=== PATIENT | male | born 1965 | race Caucasian/White ===

== ENCOUNTER 2021-02-11 09:22 | Outpatient (REF) | payer OTHER, SELFPAY ==
[2021-02-11 10:10] LABS: MANUAL DIFF FLAG NO
[2021-02-11 10:14] LABS: Basophils Absolute Auto 0.1 X10*3/uL (0.0-0.2); Basophils Percent Auto 0.9 % (0-2); Eosinophils Absolute Auto 0.3 X10*3/uL (0.0-0.4); Eosinophils Percent Auto 3.3 % (0-4); Hematocrit 42.7 % (42-52); Hemoglobin 13.8 g/dl (14.0-18.0); Imm Gran Abs Auto 0.04 X10*3/uL (0.00-0.03); Imm Gran Pct Auto 0.5 % (0.0-0.4); Lymphocytes Absolute Auto 2.2 X10*3/uL (1.2-4.9); Lymphocytes Percent Auto 28.1 % (20-40); Mean Corpuscular HGB Conc 32.3 g/dl (31.0-36.0); Mean Corpuscular Hemoglobin 28.6 pg (27.0-33.0); Mean Corpuscular Volume 88.4 fL (80-98); Monocytes Absolute Auto 0.6 X10*3/uL (0.1-1.2); Monocytes Percent Auto 7.8 % (2-11); Neutrophils Absolute Auto 4.7 X10*3/uL (2.0-8.3); Neutrophils Percent Auto 59.4 % (45-73); Platelet Count 304 X10*3/uL (160-400); Red Blood Count 4.83 X10*6/uL (4.60-5.80); Red Cell Distribution Width 13.4 % (11.0-16.0); White Blood Count 7.9 X10*3/uL (4.8-10.8)
[2021-02-11 10:26] LABS: Estimated Average Glucose 123 mg/dL; Hemoglobin A1C 142.3952 umol/L; Hemoglobin A1c % 5.9 %
[2021-02-11 10:37] LABS: Anion Gap 11 (12-20); Blood Urea Nitrogen 14 mg/dL (9-16); Calcium 9.3 mg/dL (8.4-10.2); Carbon Dioxide 31 mmol/L (22-29); Chloride 103 mmol/L (96-108); Cholesterol 179 mg/dL; Estimated Glomerular Filt Rate > 60; Glucose Fasting 109 mg/dL (60-99); HDL Cholesterol 43 mg/dL; LDL Cholesterol Calculated 113 mg/dl; Potassium 4.2 mmol/L (3.3-5.1); Sodium 141 mmol/L (135-145); Triglycerides 117 mg/dL
== END 2021-02-11 09:23 | disposition home or self-care (01) ==
LOC: HO.LAB 09:22
PROVIDERS: PCP Internal Medicine; Visit Provider Nurse Practitioner Family
DX: I10 Essential (primary) hypertension (principal)
CPT/HCPCS: 36415; 80048; 80061; 83036; 85025

== ENCOUNTER 2022-11-03 09:41 | Outpatient (REF) | payer OTHER, SELFPAY ==
[2022-11-03 11:32] LABS: Alanine Aminotransferase 24 U/L (0-40); Albumin Level 3.9 g/dL (3.5-5.0); Alkaline Phosphatase 44 U/L (39-117); Anion Gap 12 (12-20); Aspartate Amino Transferase 21 U/L (5-37); Bilirubin Total 0.3 mg/dL (0.0-1.0); Blood Urea Nitrogen 16 mg/dL (9-16); Calcium 9.2 mg/dL (8.4-10.2); Carbon Dioxide 30 mmol/L (22-29); Chloride 104 mmol/L (96-108); Cholesterol 176 mg/dL; Estimated Glomerular Filt Rate > 60; Glucose Fasting 98 mg/dL (60-99); HDL Cholesterol 41 mg/dL; LDL Cholesterol Calculated 120 mg/dl; Potassium 4.6 mmol/L (3.3-5.1); Sodium 141 mmol/L (135-145); Total Protein 7.2 g/dL (6.5-8.0); Triglycerides 79 mg/dL
== END 2022-11-03 09:42 | disposition home or self-care (01) ==
LOC: HO.LAB 09:41
PROVIDERS: Visit Provider Internal Medicine
DX: E78.5 Hyperlipidemia, unspecified (principal); I10 Essential (primary) hypertension
CPT/HCPCS: 36415; 80053; 80061

== ENCOUNTER 2023-11-12 08:37 | Outpatient (REF) | payer OTHER, SELFPAY ==
--- NOTE | ~2023-11-12 | XR_ITS ---
EXAMINATION: XR knee LT 2V, XR knee standing BI CLINICAL INFORMATION: Reason for Exam M25.569 - Pain in unspecified knee COMPARISON: 06/12/2018 TECHNIQUE: Standing views of the bilateral knees and lateral and sunrise view of the left knee XR/XR knee standing BI FINDINGS/IMPRESSION: * No acute fracture or dislocation. * Bilateral mild degenerative changes of the knee joints. * Small left suprapatellar effusion.
--- NOTE | ~2023-11-12 | XR_ITS ---
EXAMINATION: XR knee LT 2V, XR knee standing BI CLINICAL INFORMATION: Reason for Exam M25.569 - Pain in unspecified knee COMPARISON: 06/12/2018 TECHNIQUE: Standing views of the bilateral knees and lateral and sunrise view of the left knee XR/XR knee LT 2V FINDINGS/IMPRESSION: * No acute fracture or dislocation. * Bilateral mild degenerative changes of the knee joints. * Small left suprapatellar effusion.
== END 2023-11-12 08:38 | disposition home or self-care (01) ==
LOC: HO.HOSX 08:37
PROVIDERS: PCP Internal Medicine; Visit Provider Physician Assistant
DX: M17.12 Unilateral primary osteoarthritis, left knee (principal)
CPT/HCPCS: 20610; 73560; 73565; J1040

== ENCOUNTER 2023-11-12 08:37 | Outpatient (AMB) | payer OTHER, SELFPAY ==
--- NOTE | 2023-11-12 08:49 | A.OFFVIS_ITS ---
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 Patient reports ongoing pain for a month and a half. He states his pain is wore when sleeping and using the stairs. Pain is more focused on both sides of the knee. Hx of injections with 5 years of relief. Hx of PT about 2 years ago with no relief. Hx of tried and failed 3+ months of compound cream. Hx of tried and failed 3 + months of NSAIDs/Tylenol. 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 The patient reports having a cortisone injection in the left knee in 2019. He reports ongoing pain for 1.5 months. He claims to have an increase in pain when sleeping and with use of stairs. He states the pain is on both sides of his knee. Patient confirms a history of injections with 5 years of relief. He reports participating in physical therapy 2 years ago, in 2020, with no relief. He states he tried and failed over 3 months use of compound cream and NSAID use like Tylenol. [facility] Medical History Benign essential hypertension Impaired fasting glucose Morbid obesity with BMI of 45.0-49.9, adult Surgical History S/P excision of lipoma (~2001) Family History Father Diabetes Mother Diabetes Family/Other Substance use disorder Social History (Updated 11/12/23 @ 08:52 by Rahul Hood) Housing: Apartment Alcohol intake: current Alcohol intake frequency: holidays/special occasions only Alcohol type: beer Patient Tobacco Use Status: Never used Tobacco e-Cigarette/Vaping Use: Never Used Second Hand Smoke Exposure: No service: No 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al status: employed 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: [employer] worker 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al exposures/hazards: No Cognitive needs: No Hearing needs: No Vision needs: No Review of Systems Const All systems reviewed & are unremarkable except as noted in HPI and below Physical Exam Vital Signs: BMI result Body Mass Index 43.8 Const General: cooperative and no acute distress Orientation/consciousness: patient oriented x3 Resp Effort & Inspection: normal respiratory effort and able to speak in complete sentences Cardio Peripheral pulses: Peripheral pulses 2+ throughout Skin General skin exam: no rashes or lesions noted Neuro General: patient oriented x3 Extrem Other: Left knee: Normal to inspection. No ecchymosis, erythema, or joint effusion. No tenderness to palpation to the medial or lateral joint lines. Full knee extension and flexion. Mild crepitus felt with ROM. NVI. Office Procedures Joint Injection/Drain Joint Injection/Drain Primary Site: left knee Prep: site was prepped using aseptic technique, ethochloride spray was applied and injection warnings given Injected: 80 mg of, DepoMedrol, with 8 mL of (2% plain lido) and in the joint Approach Used: anterolateral Procedure: The patient tolerated the procedure well, but had some pain with the injection and there was some relief with the local anesthesia Coding 86652 - Large joint Procedure code (CPT) selection complete Assessment & Plan Assessment & Plan (1) Osteoarthritis of left knee: Code(s): M17.12 - Unilateral primary osteoarthritis, left knee Qualifiers: Osteoarthritis type: unspecified Qualified Code(s): M17.12 - Unilateral primary osteoarthritis, left knee Plan Mr. Sadiq Babcock is a 57-year-old male who presents in the office today, as a new patient, for an evaluation of left knee pain. The patient reports having a cortisone injection in the left knee in 2019. He reports ongoing pain for 1.5 months. He claims to have an increase in pain when sleeping and with use of stairs. He states the pain is on both sides of his knee. Patient confirms a history of injections with 5 years of relief. He reports participating in physical therapy 2 years ago, in 2020, with no relief. He states he tried and failed over 3 months use of compound cream and NSAID use like Tylenol. The patient was offered a cortisone injection in the left knee with 80 mg of DepoMedrol. The patient was explained the risk, benefits, and alternatives to receiving this injection. After receiving consent for the injection, the patient had the procedure done while in office today. The patient tolerated the procedure well with no complications. The patient was given a reaction knee brace, off the shelf, while in the office today. Follow up will be PRN, or sooner if needed. X-rays of the left knee which were obtained while in the office today and were reviewed by me, Melissa Mello PA-C, revealed left knee osteoarthritis. Orders: Orders XR knee LT 2V Today M25.569 - Pain in unspecified knee XR knee standing BI Today M25.569 - Pain in unspecified knee Patient Instructions: Scribed for Melissa Mello PA-C by Dorothy Chawla medical transport specialist, on 11/12/2023 at 8:39 am, EST. Coding Level of Care Code New Pt Level 4 (83381) Diagnoses Osteoarthritis of left knee, unspecified osteoarthritis type M17.12 Osteoarthritis type: unspecified CPT Codes Coding - 07817 Large joint: 34191 - Large joint ([id number])
[2023-11-12 08:54] VITALS: BMI 43.8
== END 2023-11-12 09:53 | disposition home or self-care (01) ==
PROVIDERS: PCP Internal Medicine; Visit Provider Physician Assistant
DX: M17.12 Unilateral primary osteoarthritis, left knee (principal)
CPT/HCPCS: 20610; 99203

== ENCOUNTER 2023-11-25 16:50 | Outpatient (AMB) | payer OTHER, SELFPAY ==
--- NOTE | 2023-11-25 17:06 | MHC.PC.OV ---
Vital Signs 11/25/23 17:07 11/25/23 17:55 Height 5 ft 10 in Weight 305 lb BMI 43.8 BP 160/90 H 160/90 H Blood Pressure Location Lt brachial Lt brachial Position Sitting Sitting Intake Visit Reasons: physical exam Intake Note: Patient here for a physical exam, c/o acid reflux, lump on chest and left shoulder, pain when urinating 2 weeks ago Stitch Marker Required: No Accompanied by: Self / Same As Patient Allergies No Known Allergies Allergy (Verified 11/25/23 17:42) Medication List - Last Reconciled 11/25/23 by Shruthi Esteves MD amlodipine 10 mg PO DAILY hydrochlorothiazide 12.5 mg PO DAILY ibuprofen 600 mg PO Q6H PRN Tobacco use date assessed: 11/25/23 Dental Screening Dental Screen Date: 11/25/23 Did you have a dental visit in the last 12 months?: No Did you have a dental problem in the last 6 months where you did not have access to dental care?: No Was dental information given to patient?: Patient has dentist HPI HPI Comments History of Present Illness Details This is a 57-year-old male with morbid obesity that comes for his physical exam. He had a colonoscopy in [place] years ago and does not recall the results. I will order a Cologuard. He is morbidly obese with a BMI of 43.8 and declines weight loss surgery. Complains of severely dozing off while sitting and reading, watching TV, lying down to rest in the afternoon and sitting quietly after lunch having an [place] score Scale of 12 and sleep study will be order. Complains of left knee pain and that is follow by ortho. Also complains of heartburn that started happening few weeks ago. Blood pressure is elevated but he ran out of his medications a while ago. Blood pressure will be recheck in 3 weeks by nurse navigator. [facility] Medical History (Updated 11/25/23 @ 17:54 by Shruthi Esteves MD) Morbid obesity with BMI of 45.0-49.9, adult Impaired fasting glucose Benign essential hypertension Surgical History S/P excision of lipoma (~2001) Family History (Updated 11/25/23 @ 17:45 by Shruthi Esteves MD) Father Diabetes Mother Diabetes Pancreatic cancer Family/Other Substance use disorder Social History Housing: Apartment Alcohol intake: current Alcohol intake frequency: holidays/special occasions only Alcohol type: beer Patient Tobacco Use Status: Never used Tobacco e-Cigarette/Vaping Use: Never Used Second Hand Smoke Exposure: No service: No 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al status: employed 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 1. Little interest or pleasure in doing things: not at all 2. Feeling down, depressed, or hopeless: not at all 3. Trouble falling or staying asleep, or sleeping too much: several days 4. Feeling tired or having little energy: not at all 5. Poor appetite or overeating: not at all 6. Feeling bad about yourself - or that you are a failure or have let yourself or your family down: not at all 7. Trouble concentrating on things, such as reading the newspaper or watching television: not at all 8. Moving or speaking so slowly that other people could have noticed. Or the opposite - being so fidgety or restless that you have been moving around a lot more than usual: not at all 9. Thoughts that you would be better off or of hurting yourself in some way: not at all Total score: 1 Depression Screening Interpretation: Negative Depression Screening Done: Yes 37557 - PHQ-9 Billing: Yes Source: Developed by Drs. Jeremy Friend, Alicia Mckeon, Josep Donnelly and colleagues, with an educational joe from [email or web address]. Thrive Questionnaire Date Thrive assessed: 11/25/23 I am a: Patient What is your living situation today?: I have a steady place to live Within the past 12 months, did the food you bought not last and you didn't have the money to get more?: Never true Within the past 12 months, did you worry whether your food would run out before you got money to buy more?: Never true Do you have trouble paying for medicines?: No Do you have trouble getting transportation to medical appointments?: No Do you have trouble paying your heating and electricity bill?: No Do you have trouble taking care of your child, family member or friend?: No Do you have trouble with day-to-day activities such as bathing, preparing meals, shopping, managing finances, etc.?: No Are you currently unemployed and looking for a job?: No Are you interested in more education?: No Please select the resources that you would like help with: None Currently or been in a relationship where the following occur: no concerns reported THRIVE Score: 0 AUDIT C Alcohol Use Questionnaire (AUDIT-C) 1. How often do you have a drink containing alcohol?: Monthly or less 2. How many drinks containing alcohol do you have on a typical day when you are drinking?: 1 or 2 3. How often do you have six or more drinks on one occasion?: Never Total Score: 1 GAEL-7 AMB Questionnaire GAEL-7 Date GAEL - 7 assessed: 11/25/23 Feeling nervous, anxious, or on edge: 1 = Several days Not being able to stop or control worryin = Not at all Worrying too much about different things: 0 = Not at all Trouble relaxin = Not at all Being so restless that it is hard to sit still: 0 = Not at all Becoming easily annoyed or irritable: 1 = Several days Feeling afraid as if something awful might happen: 0 = Not at all Total GAEL-7 score (0-4 normal; 5-9 mild; 10-14 moderate; 15-21 severe): 2 Source: Developed by Drs. Jeremy Friend, Alicia Mckeon, Josep Donnelly and colleagues, with an educational joe from [email or web address]. GAEL-7 Assessment Billing GAEL-7 Assessment Tool: GAEL-7 Assessment 37172 Review of Systems Const All systems reviewed & are unremarkable except as noted in HPI and below Eyes Reports no additional complaints, Denies change in vision and Denies other visual disturbances Card Denies chest pain at rest, Denies chest pain with activity, Denies edema, Denies irregular heart rhythm, Denies claudication, Denies dyspnea, Denies dyspnea on exertion, Denies orthopnea, Denies paroxysmal nocturnal dyspnea and Denies slow heart rate Resp Denies cough, Denies dyspnea and Denies dyspnea on exertion GI Denies abdominal pain, Denies change in bowel habits, Denies excessive flatus, Denies nausea and Denies vomiting Denies urinary hesitancy, Denies urinary incontinence and Denies urinary urgency Musc Denies abnormal gait, Denies atrophy, Denies deformity and Denies limited range of motion Skin/Breast Denies bleeding lesions, Denies changing lesions and Denies rash Neuro Denies abnormal gait and Denies lack of coordination Physical exam (Primary Care) Vital Signs: Last Vital Signs BP 160/90 H 11/25/23 17:07 BMI result Body Mass Index 43.8 Tobacco/Smoking Status: Tobacco use Status Tobacco use date assessed 11/25/23 11/25/23 17:13 Patient Tobacco Use Status Never used Tobacco 11/25/23 17:13 e-Cigarette/Vaping Use Never Used 11/25/23 17:13 PHQ-9: PHQ-9 Score PHQ-9: Total score 1 11/25/23 17:13 Depression Screening Interpretation: Negative Thrive Assessment: Date of Thrive Assessment Date Thrive assessed 11/25/23 11/25/23 17:13 Currently or been in a relationship where the following occur: no concerns reported Const Orientation/consciousness: patient oriented x3 [facility] Head: Yes normal to inspection, Yes normocephalic and Yes atraumatic Ears: external ears normal Eyes General: appearance normal, both eyes and all related structures Eyelids: Yes eyelids normal Conjunctivae: conjunctivae normal Neck Neck: Yes normal visual inspection and Yes supple Resp Effort & Inspection: normal respiratory effort Auscultation: clear to auscultation bilaterally Cardio Jugular venous distension: no JVD Rate: regular rate Rhythm: regular rhythm Heart sounds: S1 normal heart sound present and S2 normal heart sound present GI Inspection: Yes normal to inspection Palpation (GI): Soft to palpation and nontender Auscultation: normal bowel sounds Skin General skin exam: no rashes or lesions noted Neuro General: patient oriented x3 and no focal motor deficits Extrem General: Yes full ROM Psych Appearance: grossly normal Assessment and Plan Assessment & Plan (1) Adult general medical exam: Code(s): Z00.00 - Encounter for general adult medical examination without abnormal findings Plan: Repeat in a year. (2) Morbid obesity with BMI of 40.0-44.9, adult: Code(s): E66.01 - Morbid (severe) obesity due to excess calories; Z68.41 - Body mass index [BMI] 40.0-44.9, adult Plan: Start diet and exercise as tolerated. BMI goal is less than 30. Orders: Orders Lipid Panel Today E78.5 - Hyperlipidemia, unspecified RT home sleep study Today R40.0 - Somnolence FL upper GI series Today K21.9 - Gastro-esophageal reflux disease without esophagitis Comprehensive [place]. Panel Fast Today K21.9 - Gastro-esophageal reflux disease without esophagitis Referrals Cologuard Test Z12.11 - Encounter for screening for malignant neoplasm of colon, Z12.12 - Encounter for screening for malignant neoplasm of rectum Medications: New omeprazole 20 mg PO DAILY 90 days 90 caps 0RF Refilled amlodipine 10 mg PO DAILY 90 tabs 1RF I10 - Essential (primary) hypertension hydrochlorothiazide 12.5 mg PO DAILY 90 tabs 1RF I10 - Essential (primary) hypertension Coding Level of Care Code Est Pt Prev Care 40-64y(27788) Diagnoses Adult general medical exam Z00.00 Morbid obesity with BMI of 40.0-44.9, adult E66.01; Z68.41 Additional Codes GAEL-7 Assessment Billing - GAEL-7 Assessment Tool: GAEL-7 Assessment 24154 ([id number]) Time Spent (min) 33
[2023-11-25 17:07] VITALS: BP 160/90; BMI 43.8
[2023-11-25 17:55] VITALS: BP 160/90
== END 2023-11-25 17:56 | disposition home or self-care (01) ==
LOC: HO.HMGH 16:50
PROVIDERS: PCP Internal Medicine; Visit Provider Internal Medicine
DX: Z00.00 Encounter for general adult medical examination without abnormal findings (principal); E66.01 Morbid (severe) obesity due to excess calories; Z68.41 Body mass index [BMI] 40.0-44.9, adult
CPT/HCPCS: 99396

== ENCOUNTER → 2024-01-13 12:32 | Outpatient (REF) | payer OTHER, SELFPAY | LOC: HO.SL 12:32 | PROVIDERS: PCP Internal Medicine; Visit Provider Internal Medicine | DX: R40.0 Somnolence (principal); G47.33 Obstructive sleep apnea (adult) (pediatric) | CPT/HCPCS: 95806 ==

== ENCOUNTER → 2024-01-13 13:23 | Outpatient (BNV) | payer OTHER, SELFPAY | PROVIDERS: PCP Internal Medicine; Visit Provider Internal Medicine | DX: G47.33 Obstructive sleep apnea (adult) (pediatric) (principal) | CPT/HCPCS: 95806 ==

== ENCOUNTER 2024-01-29 08:34 | Outpatient (REF) | payer OTHER, SELFPAY ==
--- NOTE | ~2024-01-29 | FL_ITS ---
EXAMINATION: XR FLUOROSCOPY UPPER GI WITH AIR CLINICAL INFORMATION: Reflux COMPARISON: None TECHNIQUE: Fluoroscopic air contrast upper GI examination was performed utilizing standard techniques with thin and thick barium and effervescent granules. Numerous spot images were obtained. FINDINGS: Lateral cine images of the oropharynx and hypopharynx demonstrate normal swallow mechanism with normal epiglottic inversion and soft palate elevation. No tracheal penetration, glottic or subglottic aspiration identified. No nasopharyngeal reflux present. Hypopharyngeal structures appear normal without evidence of mass or diverticulum. There was no significant cricopharyngeal achalasia. Dual and single contrast images of the esophagus demonstrate normal caliber, contour, and mucosal pattern. No evidence of stricture, mass, or ulcerations identified. Esophageal peristalsis was mildly disordered. Not well visualized, is a probable Schatzki's ring which appears wide open (RF 1-8, 145/150). A moderate-sized type I hiatal hernia is present. No significant gastroesophageal reflux was seen during the course of the examination and on reflux views. Dual contrast and single contrast images of the stomach demonstrated normal contour and mucosal pattern without evidence of mass, ulceration, or other abnormality. Contrast freely passed into the gastric antrum and duodenal bulb without delay. Single and air-contrast images of the duodenal bulb demonstrate no abnormality. In the second segment of the duodenum, there is a possible filling defect with smooth margins (RF 1-6, image 51 of 102). This carries a broad differential. Remainder of the duodenum as well as a duodenal bulb is normal in appearance. There is no malrotation. The imaged proximal jejunum has a normal fold pattern and caliber. FLUOROSCOPY TIME: 3 minutes 29 seconds Number of Spot Images: 11 Number of Cine: 8 DOSE AREA PRODUCT: 3125 uGy-m2 (microgray-meter squared) FL/FL upper GI w air IMPRESSION: 1. Moderate-sized type I hiatal hernia. Mildly disordered esophageal peristalsis. 2. Probable Schatzki's ring that appears wide open. 3. Suspect gastroesophageal reflux given the size of the hiatal hernia, although this was not seen during this examination. 4. Possible smooth filling defect in segment 2 of the duodenum. Recommend correlating with EGD. This procedure was performed by Abhilash Og PA-C, and supervised by Dr. Conwya
== END 2024-01-29 08:35 | disposition home or self-care (01) ==
LOC: HO.XRAY 08:34
PROVIDERS: PCP Internal Medicine; Visit Provider Internal Medicine
DX: K21.9 Gastro-esophageal reflux disease without esophagitis (principal)
CPT/HCPCS: 74246

== ENCOUNTER → 2024-01-29 08:39 | Outpatient (BNV) | payer OTHER, SELFPAY | PROVIDERS: PCP Internal Medicine; Visit Provider Physician Assistant Surgical | DX: K21.9 Gastro-esophageal reflux disease without esophagitis (principal) | CPT/HCPCS: 74246 ==

== ENCOUNTER 2024-02-11 15:27 | Outpatient (AMB) | payer OTHER, SELFPAY ==
--- NOTE | 2024-02-11 15:35 | A.OFFVIS_ITS ---
Intake Vital Signs 02/11/24 15:39 Height 5 ft 10 in Weight 305 lb BMI 43.8 Intake Visit Reasons: ov- left knee pain last injection 11/12/23 Intake Note: Ben is a 58 year old male who presents today for a follow up for his left knee OA, last injection 11/12/23. Patient reports his pain is been getting worse for the past couple months. He states his pain is worse when he is sleeping on his side and when he is using the stairs. Patient has tried and failed ibuprofen for 3+ months with no relief. He states that the injection didn't give him relief. Patient expresses that he hears a crunching sensation when he is walking and sleeping. Allergies No Known Allergies Allergy (Verified 02/11/24 15:38) HPI ov- left knee pain last injection 11/12/23 HPI Details 58-year-old male who presents in the off ice today for a follow up of left knee osteoarthritis. I last saw the patient in the office on 11/12/2023 when he was given a cortisone injection. He was also given a reaction knee brace. While in the office today he reports his pain has been getting worse for the past couple of months. He states his pain is worse when he is sleeping on his side and with the use of stairs. Confirms trying and failing the use of Ibuprofen for 3+ months with no relief. He states the injection did not give him relief. Patient expresses that he has a crunching sensation in the left knee when ambulating and sleeping. [facility] Medical History Morbid obesity with BMI of 45.0-49.9, adult Impaired fasting glucose Benign essential hypertension Surgical History S/P excision of lipoma (~2001) Family History (Updated 11/25/23 @ 17:45 by Shruthi Esteves MD) Father Diabetes Mother Diabetes Pancreatic cancer Family/Other Substance use disorder Social History Housing: Apartment Alcohol intake: current Alcohol intake frequency: holidays/special occasions only Alcohol type: beer Patient Tobacco Use Status: Never used Tobacco e-Cigarette/Vaping Use: Never Used Second Hand Smoke Exposure: No service: No 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al status: employed 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al exposures/hazards: No Cognitive needs: No Hearing needs: No Vision needs: No Review of Systems Const All systems reviewed & are unremarkable except as noted in HPI and below Physical Exam Vital Signs: BMI result Body Mass Index 43.8 Const General: cooperative and no acute distress Orientation/consciousness: patient oriented x3 Resp Effort & Inspection: normal respiratory effort and able to speak in complete sentences Cardio Rate: regular rate Peripheral pulses: Peripheral pulses 2+ throughout GI Palpation (GI): Soft to palpation Skin General skin exam: no rashes or lesions noted Lesions: no lesions Rashes: no rashes Neuro General: patient oriented x3 Extrem Other: Left knee: Normal to inspection. No ecchymosis, erythema, or joint effusion. No tenderness to palpation to the medial or lateral joint lines. Full knee extension and flexion. Mild crepitus felt with ROM. NVI. Assessment & Plan Assessment & Plan (1) Osteoarthritis of left knee: Code(s): M17.12 - Unilateral primary osteoarthritis, left knee Qualifiers: Osteoarthritis type: unspecified Qualified Code(s): M17.12 - Unilateral primary osteoarthritis, left knee Plan Mr. Sadiq Babcock is a 58-year-old male who presents in the office today for a follow up of left knee osteoarthritis. I last saw the patient in the office on 11/12/2023 when he was given a cortisone injection. He was also given a reaction knee brace. While in the office today he reports his pain has been getting worse for the past couple of months. He states his pain is worse when he is sleeping on his side and with the use of stairs. Confirms trying and failing the use of Ibuprofen for 3+ months with no relief. He states the injection did not give him relief. Patient expresses that he has a crunching sensation in the left knee when ambulating and sleeping. Discussed the role of Gel injections, a referral to Pain Management, versus a referral to Physical Therapy. The patient is unwilling to attend PT. He would like to proceed with Gel injections. We will petition the insurance company for coverage, and should this not work or give him relief, the next step would be a referral to Pain Management. He asked for [facility] paperwork to be filled out for his osteoarthritis of the left knee, which I have declined to do so. Follow up will be pending insurance approval or denial of the Gel injections, or sooner if needed. Patient Instructions: Scribed by Dorothy Chawla senior medical transcriptionist, for Melissa Mello PA-C on 02/11/2024 at 3:30 pm,EST. Coding Level of Care Code Est Pt Level 4 (47703) Diagnoses Osteoarthritis of left knee, unspecified osteoarthritis type M17.12 Osteoarthritis type: unspecified
[2024-02-11 15:39] VITALS: BMI 43.8
== END 2024-02-11 15:55 | disposition home or self-care (01) ==
PROVIDERS: PCP Internal Medicine; Visit Provider Physician Assistant
DX: M17.12 Unilateral primary osteoarthritis, left knee (principal)
CPT/HCPCS: 99213

== ENCOUNTER → 2024-02-11 15:27 | Outpatient (BNVA) | payer OTHER, SELFPAY | PROVIDERS: PCP Internal Medicine; Visit Provider Physician Assistant ==

== ENCOUNTER 2024-02-28 07:53 | Outpatient (AMB) | payer OTHER, SELFPAY ==
--- NOTE | 2024-02-28 08:03 | MHC.OFFVIS ---
Intake Visit Reasons: Left Knee Euflexxa Gel Injection #1 Intake Note: Ben is a 58 year old male who presents today for his first euflexxa gel injection. Allergies No Known Allergies Allergy (Verified 02/28/24 08:07) HPI HPI Left Knee Euflexxa Gel Injection #1: Details: 58-year-old male who presents in the office today for a follow up of left knee and to obtain his 1st Euflexxa injection in a series of 3. [facility]LY [facility] Medical History Morbid obesity with BMI of 45.0-49.9, adult Impaired fasting glucose Benign essential hypertension Surgical History S/P excision of lipoma (~2001) Family History (Updated 11/25/23 @ 17:45 by Shruthi Esteves MD) Father Diabetes Mother Diabetes Pancreatic cancer Family/Other Substance use disorder Social History Housing: Apartment Alcohol intake: current Alcohol intake frequency: holidays/special occasions only Alcohol type: beer Patient Tobacco Use Status: Never used Tobacco e-Cigarette/Vaping Use: Never Used Second Hand Smoke Exposure: No service: No 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al status: employed 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al exposures/hazards: No Cognitive needs: No Hearing needs: No Vision needs: No Review of Systems Const All systems reviewed & are unremarkable except as noted in HPI and below Physical Exam Const General: cooperative, healthy appearing and no acute distress Orientation/consciousness: patient oriented x3 Resp Effort & Inspection: normal respiratory effort and able to speak in complete sentences Cardio Rate: regular rate Peripheral pulses: Peripheral pulses 2+ throughout GI Palpation (GI): Soft to palpation Skin General skin exam: no rashes or lesions noted Lesions: no lesions Rashes: no rashes Neuro General: patient oriented x3 Extrem Other: Left knee: Normal to inspection. No ecchymosis, erythema, or joint effusion. No tenderness to palpation to the medial or lateral joint lines. Full knee extension and flexion. Mild crepitus felt with ROM. NVI. Office Procedures Joint Injection/Drain Joint Injection/Drain Primary Site: left knee Injected: in the joint (Euflexxa #1) Approach Used: anterolateral Procedure: The patient tolerated the procedure well, but had some pain with the injection and there was some relief with the local anesthesia Coding 11755 - Large joint Procedure code (CPT) selection complete Assessment & Plan Assessment & Plan (1) Osteoarthritis of left knee: Code(s): M17.12 - Unilateral primary osteoarthritis, left knee Category: Medical Qualifiers: Osteoarthritis type: unspecified Qualified Code(s): M17.12 - Unilateral primary osteoarthritis, left knee Plan Mr. Sadiq Babcock is a 58-year-old male who presents in the office today for a follow up of left knee and to obtain his 1st Euflexxa injection in a series of 3. The patient was injection with his 1st Euflexxa injection in the left knee. The patient was explained the risk, benefits, and alternatives to receiving this injection. After receiving consent for the injection, the patient had the procedure done while in the office today. The patient tolerated the procedure well with no complications. Follow up will be in 1 week for his second injection, or sooner if needed. Patient Instructions: Scribed by Dorothy Chawla medical records director, for Meilssa Mello PA-C on 02/28/2024 at 7:58 am, EST. Coding Level of Care Code Procedure Only Diagnoses Osteoarthritis of left knee, unspecified osteoarthritis type M17.12 Osteoarthritis type: unspecified CPT Codes Coding - 06790 Large joint: 97470 - Large joint ([id number])
== END 2024-02-28 08:23 | disposition home or self-care (01) ==
PROVIDERS: PCP Internal Medicine; Visit Provider Physician Assistant
DX: M17.12 Unilateral primary osteoarthritis, left knee (principal)
CPT/HCPCS: 20610

== ENCOUNTER → 2024-02-28 07:53 | Outpatient (BNVA) | payer OTHER, SELFPAY | PROVIDERS: PCP Internal Medicine; Visit Provider Physician Assistant | DX: M17.12 Unilateral primary osteoarthritis, left knee (principal) | CPT/HCPCS: 20610; J7323 ==

== ENCOUNTER 2024-03-06 10:38 | Outpatient (AMB) | payer OTHER, SELFPAY ==
--- NOTE | 2024-03-06 11:10 | MHC.OFFVIS ---
Intake Visit Reasons: Left Knee Euflexxa Gel Injection #2 Intake Note: Ben is a 58 year old male who presents today for his second euflexxa gel injection. Patient reports he is noticing a little difference when he is sleeping at night. He expresses his pain has gotten a little better. Allergies No Known Allergies Allergy (Verified 02/28/24 08:07) HPI HPI Left Knee Euflexxa Gel Injection #2: Details: 58-year-old male, who is Bruneian speaking, presents in the office today for a follow up of left knee and to obtain his 2nd Euflexxa injection in a series of 3. While in the office today he reports he has noticed a little difference when he is sleeping at night and states his pain has decreased some. [facility] Medical History Morbid obesity with BMI of 45.0-49.9, adult Impaired fasting glucose Benign essential hypertension Surgical History S/P excision of lipoma (~2001) Family History (Updated 11/25/23 @ 17:45 by Shruthi Esteves MD) Father Diabetes Mother Diabetes Pancreatic cancer Family/Other Substance use disorder Social History Housing: Apartment Alcohol intake: current Alcohol intake frequency: holidays/special occasions only Alcohol type: beer Patient Tobacco Use Status: Never used Tobacco e-Cigarette/Vaping Use: Never Used Second Hand Smoke Exposure: No service: No 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al status: employed 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: [employer] worker 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al exposures/hazards: No Cognitive needs: No Hearing needs: No Vision needs: No Review of Systems Const All systems reviewed & are unremarkable except as noted in HPI and below Physical Exam Const General: cooperative, healthy appearing and no acute distress Resp Effort & Inspection: normal respiratory effort and able to speak in complete sentences Cardio Rate: regular rate Peripheral pulses: Peripheral pulses 2+ throughout GI Palpation (GI): Soft to palpation Skin Lesions: no lesions Rashes: no rashes Extrem Other: Left knee: Normal to inspection. No ecchymosis, erythema, or joint effusion. No tenderness to palpation to the medial or lateral joint lines. Full knee extension and flexion. Mild crepitus felt with ROM. NVI. Office Procedures Joint Injection/Drain Joint Injection/Drain Primary Site: left knee Prep: site was prepped using aseptic technique, ethochloride spray was applied and injection warnings given Injected: in the joint (Euflexxa #2) Approach Used: anterolateral Procedure: The patient tolerated the procedure well, but had some pain with the injection and there was some relief with the local anesthesia Coding - Large joint Procedure code (CPT) selection complete Assessment & Plan Assessment & Plan (1) Osteoarthritis of left knee: Code(s): M17.12 - Unilateral primary osteoarthritis, left knee Category: Medical Qualifiers: Osteoarthritis type: unspecified Qualified Code(s): M17.12 - Unilateral primary osteoarthritis, left knee Plan Sadiq Sanchez is a 58-year-old male, who is Bruneian speaking, presents in the office today for a follow up of left knee and to obtain his 2nd Euflexxa injection in a series of 3. While in the office today he reports he has noticed a little difference when he is sleeping at night and states his pain has decreased some. The patient was injection with his 2nd Euflexxa injection in the left knee. The patient was explained the risk, benefits, and alternatives to receiving this injection. After receiving consent for the injection, the patient had the procedure done while in the office today. The patient tolerated the procedure well with no complications. Follow up will be in 1 week for his third injection, or sooner if needed. Patient Instructions: Scribed by Dorothy Chawla medical staff services coordinator, for Melissa Mello PA-C on 03/06/2024 at 10:44 am, EST. Coding Level of Care Code Procedure Only Diagnoses Osteoarthritis of left knee, unspecified osteoarthritis type M17.12 Osteoarthritis type: unspecified CPT Codes Coding - 39716 Large joint: 46930 - Large joint ([id number])
== END 2024-03-06 11:25 | disposition home or self-care (01) ==
PROVIDERS: PCP Internal Medicine; Visit Provider Physician Assistant
DX: M17.12 Unilateral primary osteoarthritis, left knee (principal)
CPT/HCPCS: 20610

== ENCOUNTER → 2024-03-06 10:38 | Outpatient (BNVA) | payer OTHER, SELFPAY | PROVIDERS: PCP Internal Medicine; Visit Provider Physician Assistant | DX: M17.12 Unilateral primary osteoarthritis, left knee (principal) | CPT/HCPCS: 20610; J7323 ==

== ENCOUNTER 2024-03-13 09:20 | Outpatient (AMB) | payer OTHER, SELFPAY ==
--- NOTE | 2024-03-13 09:21 | A.OFFVIS_ITS ---
Intake Visit Reasons: Left Knee Euflexxa gel injection #3 Intake Note: Ben is a 58 year old male who presents today for a his 3rd euflexxa gel injection. Patient reports he has noticed a difference when he is walking and using the stairs. Allergies No Known Allergies Allergy (Verified 02/28/24 08:07) HPI HPI Left Knee Euflexxa gel injection #3: Details: 58-year-old male, who is Cuban speaking, presents in the office today for a follow up of left knee and to obtain his 3rd Euflexxa injection in a series of 3. While in the office today the patient reports he has noticed a difference with ambulating and with the use of stairs. [facility] Medical History Morbid obesity with BMI of 45.0-49.9, adult Impaired fasting glucose Benign essential hypertension Surgical History S/P excision of lipoma (~2001) Family History (Updated 11/25/23 @ 17:45 by Shruthi Esteves MD) Father Diabetes Mother Diabetes Pancreatic cancer Family/Other Substance use disorder Social History Housing: Apartment Alcohol intake: current Alcohol intake frequency: holidays/special occasions only Alcohol type: beer Patient Tobacco Use Status: Never used Tobacco e-Cigarette/Vaping Use: Never Used Second Hand Smoke Exposure: No service: No 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al status: employed 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 No ecchymosis, erythema, or joint effusion. No tenderness to palpation to the medial or lateral joint lines. Full knee extension and flexion. Mild crepitus felt with ROM. NVI. Office Procedures Joint Injection/Drain Joint Injection/Drain Primary Site: left knee Prep: site was prepped using aseptic technique, ethochloride spray was applied and injection warnings given Injected: in the joint (Euflexxa #3) Approach Used: anterolateral Procedure: The patient tolerated the procedure well, but had some pain with the injection and there was some relief with the local anesthesia Coding 28208 - Large joint Procedure code (CPT) selection complete Assessment & Plan Assessment & Plan (1) Osteoarthritis of left knee: Code(s): M17.12 - Unilateral primary osteoarthritis, left knee Category: Medical Qualifiers: Osteoarthritis type: unspecified Qualified Code(s): M17.12 - Unilateral primary osteoarthritis, left knee Plan Mr. Sadiq Babcock is a 58-year-old male, who is Cuban speaking, presents in the office today for a follow up of left knee and to obtain his 3rd Euflexxa injection in a series of 3. While in the office today the patient reports he has noticed a difference with ambulating and with the use of stairs. The patient was injection with his 3rd Euflexxa injection in the left knee. The patient was explained the risk, benefits, and alternatives to receiving this injection. After receiving consent for the injection, the patient had the procedure done while in the office today. The patient tolerated the procedure well with no complications. Follow up will be PRN, or sooner if needed. Patient Instructions: Scribed by Dorothy Chawla certified medical assistant, for Melissa Mello PA-C on 03/13/2024 at 9:40 am, EST. Coding Level of Care Code Procedure Only Diagnoses Osteoarthritis of left knee, unspecified osteoarthritis type M17.12 Osteoarthritis type: unspecified CPT Codes Coding - 32248 Large joint: 92599 - Large joint ([id number])
== END 2024-03-13 09:50 | disposition home or self-care (01) ==
PROVIDERS: PCP Internal Medicine; Visit Provider Physician Assistant
DX: M17.12 Unilateral primary osteoarthritis, left knee (principal)
CPT/HCPCS: 20610

== ENCOUNTER → 2024-03-13 09:20 | Outpatient (BNVA) | payer OTHER, SELFPAY | PROVIDERS: PCP Internal Medicine; Visit Provider Physician Assistant | DX: M17.12 Unilateral primary osteoarthritis, left knee (principal) | CPT/HCPCS: 20610; J7323 ==

== ENCOUNTER 2024-03-28 09:32 | Outpatient (REF) | payer OTHER, SELFPAY ==
[2024-03-28 11:38] LABS: Alanine Aminotransferase 30 U/L (0-40); Alkaline Phosphatase 42 U/L (39-117); Anion Gap 14 (12-20); Aspartate Amino Transferase 22 U/L (5-37); Bilirubin Total 0.4 mg/dL (0.0-1.0); Blood Urea Nitrogen 15 mg/dL (9-16); Calcium 9.5 mg/dL (8.4-10.2); Carbon Dioxide 27 mmol/L (22-29); Chloride 103 mmol/L (96-108); Cholesterol 166 mg/dL (<200); Estimated Glomerular Filt Rate > 60; Glucose Fasting 94 mg/dL (60-99); HDL Cholesterol 42 mg/dL (>40); LDL Cholesterol Calculated 108 mg/dL (<100); Sodium 140 mmol/L (135-145); Total Protein 7.6 g/dL (6.5-8.0); Triglycerides 80 mg/dL (<150)
== END 2024-03-28 09:33 | disposition home or self-care (01) ==
LOC: HO.LAB 09:32
PROVIDERS: PCP Internal Medicine; Visit Provider Internal Medicine
DX: E78.5 Hyperlipidemia, unspecified (principal); K21.9 Gastro-esophageal reflux disease without esophagitis
CPT/HCPCS: 36415; 80053; 80061

== ENCOUNTER 2024-03-30 14:53 | Outpatient (AMB) | payer OTHER, SELFPAY ==
--- NOTE | 2024-03-30 15:00 | A.OFFPC_ITS ---
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 Required: No Accompanied by: Self / Same As Patient Allergies No Known Allergies Allergy (Verified 03/30/24 16:02) Medication List - Last Reconciled 03/30/24 by Shruthi Esteves MD amlodipine 10 mg PO DAILY CPAP (CPAP Machine/Device) autoPAP 6-20 cm H2O hydrochlorothiazide 25 mg PO DAILY 90 days ibuprofen 600 mg PO Q6H PRN meloxicam 15 mg PO DAILY omeprazole 20 mg PO DAILY 90 days semaglutide (weight loss) (Wegovy) 0.25 mg (0.5 mL) subcut QWEEK 4 weeks Tobacco use date assessed: 11/25/23 Dental Screening Dental Screen Date: 11/25/23 HPI HPI Comments History of Present Illness Details This is a 58-year-old male with hypertension, morbid obesity, obstructive sleep apnea on CPAP and GERD that comes today for follow-up on his conditions. Blood pressure borderline normal to elevated and I will increase hydrochlorothiazide from 12.5 mg to 25 mg. He is morbidly obese with a BMI of 45.8 and declines weight loss surgery. He would like to try Wegovy. Side effects were advised. On CPAP for his obstructive sleep apnea and feels more re sted and his compliant with CPAP machine. GERD somewhat stable with PPIs and upper GI series was abnormal and has Gastroenterology appointment to discuss this. Complains of low back pain and had relief with an external TENS Unit. He complains of right leg pain and swelling and I will order ultrasound duplex to rule out DVT. [facility] Medical History (Updated 03/30/24 @ 16:03 by Shruthi Esteves MD) Morbid obesity due to excess calories Morbid obesity with BMI of 40.0-44.9, adult Morbid obesity with BMI of 45.0-49.9, adult Impaired fasting glucose Benign essential hypertension Surgical History S/P excision of lipoma (~2001) Family History Father Diabetes Mother Diabetes Pancreatic cancer Family/Other Substance use disorder Social History Housing: Apartment Alcohol intake: current Alcohol intake frequency: holidays/special occasions only Alcohol type: beer Patient Tobacco Use Status: Never used Tobacco e-Cigarette/Vaping Use: Never Used Second Hand Smoke Exposure: No service: No 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al status: employed 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 Jeremy Friend, Alicia Mckeon, Josep Donnelly and colleagues, with an educational joe from [employer]. Review of Systems Const All systems reviewed & are unremarkable except as noted in HPI and below Card Denies chest pain at rest, Denies chest pain with activity, Denies edema, Denies irregular heart rhythm, Denies claudication, Denies dyspnea, Denies dyspnea on exertion, Denies orthopnea, Denies paroxysmal nocturnal dyspnea and Denies slow heart rate Resp Denies cough, Denies dyspnea and Denies dyspnea on exertion Physical exam (Primary Care) Vital Signs: Last Vital Signs BP 148/80 H 03/30/24 15:01 Care Plan Goal for BP management: Increase hydrochlorothiazide to 25 mg once a day. Next steps: Recheck blood pressure with nurse navigator in 3 weeks. BMI result Body Mass Index 45.8 BMI Assessment/Plan discussion: High BMI High, discussed plan: lifestyle, weight reduction, dietary and physical activity Tobacco/Smoking Status: Tobacco use Status Tobacco use date assessed 11/25/23 03/30/24 15:06 Patient Tobacco Use Status Never used Tobacco 03/30/24 15:06 e-Cigarette/Vaping Use Never Used 03/30/24 15:06 Thrive Assessment: Date of Thrive Assessment Date Thrive assessed 11/25/23 03/30/24 15:06 Resp Effort & Inspection: normal respiratory effort Auscultation: clear to auscultation bilaterally Cardio Jugular venous distension: no JVD Rate: regular rate Rhythm: regular rhythm Heart sounds: S1 normal heart sound present and S2 normal heart sound present Extrem General: Yes full ROM Assessment and Plan Assessment & Plan (1) GERD (gastroesophageal reflux disease): Code(s): K21.9 - Gastro-esophageal reflux disease without esophagitis Plan: Continue PPIs. (2) JOAQUIN (obstructive sleep apnea): Code(s): G47.33 - Obstructive sleep apnea (adult) (pediatric) Plan: Continue CPAP machine. (3) Right leg pain: Code(s): M79.604 - Pain in right leg Plan: Ultrasound venous duplex ordered to rule out DVT. (4) Benign essential hypertension: Code(s): I10 - Essential (primary) hypertension Plan: Continue amlodipine. Increase hydrochlorothiazide. Blood pressure goal is equal or less than 130/80. Recheck blood pressure with nurse navigator in 3 weeks. (5) Morbid obesity with BMI of 45.0-49.9, adult: Code(s): E66.01 - Morbid (severe) obesity due to excess calories; Z68.42 - Body mass index [BMI] 45.0-49.9, adult Plan: Start Wegovy. BMI goal is less than 30. Orders: Orders US venous duplex LE RT Today M79.604 - Pain in right leg US extremity nonvascular vail Today M25.812 - Other specified joint disorders, left shoulder Referrals General Surgery Referral M25.812 - Other specified joint disorders, left shoulder Medications: New hydrochlorothiazide 25 mg PO DAILY 90 days 90 tabs 1RF semaglutide (weight loss) (Wegovy) administer weeks 1 through 4 of therapy 0.25 mg (0.5 mL) subcut QWEEK 4 weeks 2 mL 0RF E66.01 - Morbid (severe) obesity due to excess calories Discontinued hydrochlorothiazide Discontinued Reason: Order 12.5 mg PO DAILY 90 tabs 1RF I10 - Essential (primary) hypertension Coding Level of Care Code Est Pt Level 4 (06582) Complex EM visit Add On G2211 Diagnoses GERD (gastroesophageal reflux disease) K21.9 JOAQUIN (obstructive sleep apnea) G47.33 Right leg pain M79.604 Benign essential hypertension I10 Morbid obesity with BMI of 45.0-49.9, adult E66.01; Z68.42 Time Spent (min) 25
[2024-03-30 15:01] VITALS: BP 148/80; BMI 45.8
[2024-03-30 16:01] VITALS: BP 145/80
== END 2024-03-30 15:43 | disposition home or self-care (01) ==
PROVIDERS: PCP Internal Medicine; Visit Provider Internal Medicine
DX: K21.9 Gastro-esophageal reflux disease without esophagitis (principal); E66.01 Morbid (severe) obesity due to excess calories; Z68.42 Body mass index [BMI] 45.0-49.9, adult; G47.33 Obstructive sleep apnea (adult) (pediatric); M79.604 Pain in right leg; I10 Essential (primary) hypertension
CPT/HCPCS: 99214; G2211

== ENCOUNTER 2024-03-30 16:09 | Outpatient (REF) | payer OTHER, SELFPAY ==
--- NOTE | ~2024-03-30 | US_ITS ---
EXAMINATION: US VENOUS ULTRASOUND WITH DOPPLER LOWER EXTREMITY, RIGHT CLINICAL INFORMATION: Pain in right leg. COMPARISON: None available. TECHNIQUE: Ultrasound of the deep veins is performed from the hip to the calf with compression sonography and color and pulse Doppler assessment. Spectral analysis with color-flow imaging is performed. FINDINGS: There is normal venous compression and respiratory variation. The visualized common femoral vein, superficial femoral vein, profunda femoral vein, popliteal vein, and the mid posterior tibial and peroneal veins show no evidence of deep venous thrombosis. Contralateral common femoral vein demonstrates normal respiratory variation. A compressible varicosity is seen in the right distal calf. US/US venous duplex LE RT IMPRESSION: No DVT demonstrated in the right lower extremity.
== END 2024-03-30 16:10 | disposition home or self-care (01) ==
LOC: HO.US 16:09
PROVIDERS: PCP Internal Medicine; Visit Provider Internal Medicine
DX: M79.604 Pain in right leg (principal)
CPT/HCPCS: 93971

== ENCOUNTER 2024-04-03 15:36 | Outpatient (REF) | payer OTHER, SELFPAY ==
--- NOTE | ~2024-04-03 | US_ITS ---
EXAMINATION: ULTRASOUND CHEST CLINICAL INFORMATION: Left shoulder lump, chest lump. COMPARISON: None available. TECHNIQUE: High-frequency linear ultrasound transducer was used to examine the area of clinical concern. FINDINGS: There is a well-marginated hypoechoic complex structure seen just to the right of the midline of the chest measuring 2.4 x 1.6 x 2.5 cm. This appears to have no significant vascularity. There is a lobular hypoechoic mass seen just lateral to the upper left shoulder measuring 2.8 x 1.7 x 2.5 cm. There is minimal vascularity seen. US/US extremity nonvascular vail IMPRESSION: 2 masses are seen in the chest and left shoulder. Appearances are entirely nonspecific. MRI of the chest and shoulder is recommended for further evaluation. If these are felt to be suspicious, percutaneous biopsy could always be performed.
== END 2024-04-03 15:37 | disposition home or self-care (01) ==
LOC: HO.US 15:36
PROVIDERS: PCP Internal Medicine; Visit Provider Internal Medicine
DX: M25.812 Other specified joint disorders, left shoulder (principal)
CPT/HCPCS: 76882

== ENCOUNTER 2024-04-23 15:19 | Outpatient (AMB) | payer OTHER, SELFPAY ==
--- NOTE | 2024-04-23 15:20 | MHC.OFFVIS ---
Vital Signs 04/23/24 15:27 Height 5 ft 10 in Weight 310 lb BMI 44.5 BP 191/86 H Blood Pressure Location Lt brachial Position Sitting Pulse 92 Intake Visit Reasons: Lump~ Lt shoulder& chest Intake Note: Patient is seen in office for evaluation and treatment of left shoulder and chest lump. Pt c/o: chest lump over 10 yrs, had removed it in the past and came back,no pain or discharge has another left shoulder started as a black head and now has a lump, painful, discharge Compensation Business Partner Required: Yes Compensation Business Partner Language: Art Objects Repairer Services: Compensation Business Partner Present Information Interpreted: non-clinical & clinical Accompanied by: Self / Same As Patient Allergies No Known Allergies Allergy (Verified 04/23/24 15:26) HPI Comments Details: 58-year-old male patient presenting for evaluation of a recurrent epidermal inclusion cyst of the anterior chest and a new cyst located in the posterior left shoulder. He reports a previous excision many years ago of the anterior chest lesion but this has subsequently become quite large once again. He denies any bleeding or discharge discharge from either site. He denies fever or chills. He is requesting excision of both lesions. [facility] Medical History Morbid obesity due to excess calories Morbid obesity with BMI of 40.0-44.9, adult Morbid obesity with BMI of 45.0-49.9, adult Impaired fasting glucose Benign essential hypertension Surgical History S/P excision of lipoma (~2001) Family History Father Diabetes Mother Diabetes Pancreatic cancer Family/Other Substance use disorder Social History Housing: Apartment Alcohol intake: current Alcohol intake frequency: holidays/special occasions only Alcohol type: beer Patient Tobacco Use Status: Never used Tobacco e-Cigarette/Vaping Use: Never Used Second Hand Smoke Exposure: No service: No 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al status: employed 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al exposures/hazards: No Cognitive needs: No Hearing needs: No Vision needs: No Review of Systems Const All systems reviewed & are unremarkable except as noted in HPI and below Denies chills, Denies fever(s), Denies headache(s), Denies poor appetite and Denies weakness ENT Denies headache(s) Card Denies chest pain, Denies irregular heart rhythm, Denies palpitations and Denies dyspnea Resp Denies cough, Denies excessive phlegm production and Denies dyspnea GI Denies abdominal pain, Denies bloating, Denies change in bowel habits, Denies constipation, Denies heartburn, Denies diarrhea, Denies nausea and Denies vomiting Denies difficulty urinating and Denies urinary frequency Musc Denies back pain, Denies muscle weakness and Denies numbness Skin/Breast Denies changing lesions and Denies unusual bruising Neuro Denies headache(s), Denies numbness, Denies paresthesias and Denies weakness Psych Denies anxiety and Denies depression Endo Denies palpitations Lazaro/Lymph Denies lymphadenopathy Physical Exam Vital Signs: Last Vital Signs Pulse 92 04/23/24 15:27 BP 191/86 H 04/23/24 15:27 BMI result Body Mass Index 44.5 Const General: cooperative and no acute distress Nutritional Appearance: well nourished Orientation/consciousness: patient oriented x3 Limitations: no limitations HEENT Head: Yes normocephalic and Yes atraumatic Ears: hearing grossly normal bilaterally Chest Chest/axillae images: 1. 2.5 cm sebaceous cyst, recurrent Resp Effort & Inspection: normal respiratory effort, no audible wheezes, no cough and no respiratory distress Cardio Jugular venous distension: no JVD GI Inspection: Yes normal to inspection Back/Spine/Pelvis Back/spine/pelvis image: 1. 2 cm sebaceous cyst posterior left shoulder, tender to palpation Skin Other: Warm, dry, no rash Neuro General: patient oriented x3 Extrem General: Yes no clubbing, cyanosis or edema Assessment & Plan Assessment & Plan (1) Epidermal inclusion cyst: Code(s): L72.0 - Epidermal cyst Category: Medical Plan 58-year-old male patient presenting with an enlarging recurrent epidermal inclusion cyst of the mid chest as well as a new epidermal inclusion cyst of the left posterior shoulder. The patient is requested excision of both lesions and after discussion of the procedure, risks, and alternatives, consents to the procedure. This will be scheduled as an office procedure under local anesthesia. Coding Level of Care Code New Pt Level 4 (60808) Diagnoses Epidermal inclusion cyst L72.0
[2024-04-23 15:27] VITALS: BP 191/86; PULSE 92; BMI 44.5
== END 2024-04-23 15:36 | disposition home or self-care (01) ==
PROVIDERS: PCP Internal Medicine; Referring Provider Internal Medicine; Visit Provider Surgery
DX: L72.0 Epidermal cyst (principal)
CPT/HCPCS: 99204

== ENCOUNTER → 2024-04-23 15:19 | Outpatient (BNVA) | payer OTHER, SELFPAY | PROVIDERS: PCP Internal Medicine; Referring Provider Internal Medicine; Visit Provider Surgery ==

== ENCOUNTER 2024-05-08 10:37 | Outpatient (REF) | payer OTHER, SELFPAY | END 2024-05-08 10:38 | disposition home or self-care (01) | LOC: HO.LNP 10:37 | PROVIDERS: PCP Internal Medicine; Visit Provider Surgery | DX: R22.2 Localized swelling, mass and lump, trunk (principal) | CPT/HCPCS: 11402; 11403; 88304 ==

== ENCOUNTER 2024-05-08 10:37 | Outpatient (AMB) | payer OTHER, SELFPAY ==
--- NOTE | 2024-05-08 10:51 | MHC.OFFVIS ---
Vital Signs 05/08/24 11:01 Height 5 ft 10 in Weight 313 lb BMI 44.9 BP 194/87 H Blood Pressure Location Lt brachial Position Sitting Pulse 89 Intake Visit Reasons: Excision 2 cyst~ Lt shoulder& chest Intake Note: Patient is seen in office for office procedure, excision of cyst of the left shoulder and chest. Pt c/o: left shoulder cyst has gone down a bit, chest one still the same here to remove Deicer Inspector Electric Required: Yes Deicer Inspector Electric Language: Control Room Technician Services: Deicer Inspector Electric Present Deicer Inspector Electric Name: Rizwana OBREGON Information Interpreted: non-clinical & clinical Accompanied by: Family/Other Allergies No Known Allergies Allergy (Verified 04/23/24 15:26) HPI Comments Details: Patient returns for excision of sebaceous cyst of the right chest and left shoulder posteriorly. He denies any new complaints. [facility], [facility] Medical History Morbid obesity due to excess calories Morbid obesity with BMI of 40.0-44.9, adult Morbid obesity with BMI of 45.0-49.9, adult Impaired fasting glucose Benign essential hypertension Surgical History S/P excision of lipoma (~2001) Family History Father Diabetes Mother Diabetes Pancreatic cancer Family/Other Substance use disorder Social History Housing: Apartment Alcohol intake: current Alcohol intake frequency: holidays/special occasions only Alcohol type: beer Patient Tobacco Use Status: Never used Tobacco e-Cigarette/Vaping Use: Never Used Second Hand Smoke Exposure: No service: No 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al status: employed 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 2.5 cm sebaceous cyst of anterior right chest Back/Spine/Pelvis Back/spine/pelvis image: 1. 2 cm sebaceous cyst of the posterior left shoulder Office Procedures Excision Details: Preoperative diagnosis: Sebaceous cyst right chest and posterior left shoulder Postoperative diagnosis: Same Procedure: Excision of sebaceous cyst right chest and posterior left shoulder Surgeon: Camden Fernandez MD Sharepoint Application Developer: None Anesthesia: Lidocaine 1% with epinephrine Indications for procedure: 58-year-old male patient presenting with 2 large sebaceous cysts including a 2.5 cm sebaceous cyst of the right chest and 2 cm cyst of the left posterior shoulder Operative findings: Sebaceous cyst x2 right chest and posterior shoulder Specimen: Sebaceous cyst right chest and posterior left shoulder Estimated blood loss: 5 mL Complications: None Procedure details: Patient was brought to the procedure room and placed in a supine position. The cyst sites were confirmed by the patient in the anterior right chest and posterior left shoulder. After assuring informed consent the cyst of the right chest was prepped with Betadine and draped in a sterile fashion. Local anesthesia was then infiltrated around the cyst. Elliptical incision oriented transversely was then created. This was carried out through subcutaneous tissue and around the cyst wall. The cyst was completely excised and passed off the table to be sent to pathology. Light pressure was held to maintain hemostasis. Skin was then closed using interrupted 3-0 nylon sutures. Sterile dressings consisting of 2 x 2 gauze and Tegaderm were then applied. The patient was then placed in a right lateral decubitus position. The cyst was prepped with Betadine over the left shoulder and draped in a sterile fashion. Local anesthesia was then infiltrated around the cyst. An elliptical incision oriented longitudinally was then created around the cyst and carried out through subcutaneous tissue and around the cyst wall. The cyst was completely excised and sent to pathology for further examination. Skin was then closed using interrupted 3-0 nylon sutures. Sterile dressings including 2 x 2 gauze and Tegaderm were then applied. The patient tolerated the procedure well. Was discharged in stable condition. 23152-ikmsi/arms/legs 1.1-2cm 04206-plogk/arms/legs 2.1-3cm Procedure code (CPT) selection complete Assessment & Plan Assessment & Plan (1) Mass in chest: Code(s): R22.2 - Localized swelling, mass and lump, trunk Category: Medical Plan 58-year-old male patient with 2 sebaceous cyst of the right chest and posterior left shoulder. He underwent excision today and tolerated the procedure well. He will return in 1 week for suture removal. Orders: Orders Surgical Today R22.2 - Localized swelling, mass and lump, trunk Coding Level of Care Code Procedure Only Diagnoses Mass in chest R22.2 CPT Codes Trunk/Arms/Legs - CPT: 40153-wtwlh/arms/legs 1.1-2cm ([id number]) Trunk/Arms/Legs - CPT: 89091-sszam/arms/legs 2.1-3cm ([id number])
[2024-05-08 11:01] VITALS: BP 194/87; PULSE 89; BMI 44.9
== END 2024-05-08 11:38 | disposition home or self-care (01) ==
PROVIDERS: PCP Internal Medicine; Visit Provider Surgery
DX: L72.0 Epidermal cyst (principal)
CPT/HCPCS: 11402; 11403

== ENCOUNTER 2024-05-19 09:36 | Outpatient (AMB) | payer OTHER, SELFPAY ==
--- NOTE | 2024-05-19 09:54 | A.OFFVIS_ITS ---
Vital Signs 05/19/24 10:10 Height 5 ft 10 in Weight 310 lb 13.628 oz BMI 44.6 Pulse 85 Intake Visit Reasons: s/p Excision 2 cyst~ Lt shoulder& chest Intake Note: Patient is seen in office for post op assessment post excision of cyst of the left shoulder and chest. Pt c/o: no concerns healing as expected Product Architect Required: Yes Product Architect Language: Hatch Tender Services: Product Architect Present Product Architect Name: Rizwana OBREGON Information Interpreted: non-clinical & clinical In Flight Refueling System Repairer: In Flight Refueling System Repairer Present Accompanied by: Spouse Allergies No Known Allergies Allergy (Verified 05/19/24 09:55) Medication List - Last Reconciled 05/19/24 by Camden Fernandez MD amlodipine 10 mg PO DAILY CPAP (CPAP Machine/Device) autoPAP 6-20 cm H2O hydrochlorothiazide 25 mg PO DAILY 90 days meloxicam 15 mg PO DAILY omeprazole 20 mg PO DAILY 90 days semaglutide (weight loss) (Wegovy) 0.25 mg (0.5 mL) subcut QWEEK 4 weeks HPI Comments Details: 58-year-old male patient status post excision of a sebaceous cyst of the anterior chest and posterior left shoulder. He tolerated the procedure well returns today for suture removal. He reports some itchiness in the incision. Pathology confirmed the diagnosis of inclusion cyst. [facility] Medical History Morbid obesity due to excess calories Morbid obesity with BMI of 40.0-44.9, adult Morbid obesity with BMI of 45.0-49.9, adult Impaired fasting glucose Benign essential hypertension Surgical History S/P excision of lipoma (~2001) Family History Father Diabetes Mother Diabetes Pancreatic cancer Family/Other Substance use disorder Social History Housing: Apartment Alcohol intake: current Alcohol intake frequency: holidays/special occasions only Alcohol type: beer Patient Tobacco Use Status: Never used Tobacco e-Cigarette/Vaping Use: Never Used Second Hand Smoke Exposure: No service: No 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al status: employed 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 Sutures removed an incision found to be well healed. Back/Spine/Pelvis Other: Left back incision is clean, dry, and intact. Sutures removed and the wounds found to be well healed. Neuro General: patient oriented x3 Assessment & Plan Assessment & Plan (1) Epidermal inclusion cyst: Code(s): L72.0 - Epidermal cyst Category: Medical Plan Patient returns following excision of an epidermal inclusion cyst of the mid chest and posterior left shoulder. He tolerated the procedure well and his wounds are healing nicely. He should follow up as needed. Coding Level of Care Code Global (94207) Diagnoses Epidermal inclusion cyst L72.0
[2024-05-19 10:10] VITALS: PULSE 85; BMI 44.6
== END 2024-05-19 10:15 | disposition home or self-care (01) ==
PROVIDERS: PCP Internal Medicine; Visit Provider Surgery
DX: L72.0 Epidermal cyst (principal)
CPT/HCPCS: 99024

== ENCOUNTER → 2024-05-19 09:36 | Outpatient (BNVA) | payer OTHER, SELFPAY | PROVIDERS: PCP Internal Medicine; Visit Provider Surgery | DX: R22.2 Localized swelling, mass and lump, trunk (principal) ==

== ENCOUNTER 2024-07-16 13:00 | Outpatient (AMB) | payer OTHER, SELFPAY ==
--- NOTE | 2024-07-16 13:04 | A.OFFPC_ITS ---
Vital Signs 07/16/24 13:05 Height 5 ft 10 in Weight 306 lb BMI 43.9 BP 140/70 H Blood Pressure Location Lt brachial Position Sitting Intake Visit Reasons: [facility] 07/02 wegovy side effect Rn Observation Required: No Accompanied by: Spouse Allergies No Known Allergies Allergy (Verified 07/16/24 13:13) Medication List - Last Reconciled 07/16/24 by Shruthi Esteves MD amlodipine 10 mg PO DAILY CPAP (CPAP Machine/Device) autoPAP 6-20 cm H2O hydrochlorothiazide 25 mg PO DAILY 90 days meloxicam 15 mg PO DAILY omeprazole 20 mg PO DAILY 90 days Tobacco use date assessed: 11/25/23 Dental Screening Dental Screen Date: 11/25/23 Did you have a dental visit in the last 12 months?: No Did you have a dental problem in the last 6 months where you did not have access to dental care?: No Was dental information given to patient?: Patient has dentist HPI HPI Comments History of Present Illness Details This is a 58-year-old male with hypertension, GERD and morbid obesity that comes today as hospital discharge follow-up after having abdominal pain and nausea secondary to wegovy. He is morbidly obese with a BMI of 43.9 and I will refer him to weight management for evaluation for weight loss surgery. Blood p ressure borderline normal to elevated and will be recheck in 3 weeks by nurse navigator. GERD stable with PPIs. He does complain of a rash in the inguinal area exacerbated by heat most likely due to candidal intertrigo. [facility] Medical History (Updated 07/16/24 @ 13:31 by Shruthi Esteves MD) Morbid obesity with BMI of 40.0-44.9, adult Morbid obesity due to excess calories Morbid obesity with BMI of 45.0-49.9, adult Impaired fasting glucose Benign essential hypertension Surgical History S/P excision of lipoma (~2001) Family History Father Diabetes Mother Diabetes Pancreatic cancer Family/Other Substance use disorder Social History Housing: Apartment Alcohol intake: current Alcohol intake frequency: holidays/special occasions only Alcohol type: beer Patient Tobacco Use Status: Never used Tobacco e-Cigarette/Vaping Use: Never Used Second Hand Smoke Exposure: No service: No 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al status: employed 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 Jeremy Friend, Alicia Mckeon, Josep Donnelly and colleagues, with an educational joe from [employer]. Review of Systems Const All systems reviewed & are unremarkable except as noted in HPI and below Card Denies chest pain at rest, Denies chest pain with activity, Denies edema, Denies irregular heart rhythm, Denies claudication, Denies dyspnea, Denies dyspnea on exertion, Denies orthopnea, Denies paroxysmal nocturnal dyspnea and Denies slow heart rate Resp Denies cough, Denies dyspnea and Denies dyspnea on exertion GI Denies abdominal pain, Denies change in bowel habits, Denies excessive flatus, Denies nausea and Denies vomiting Physical exam (Primary Care) Vital Signs: Last Vital Signs BP 140/70 H 07/16/24 13:05 BMI result Body Mass Index 43.9 BMI Assessment/Plan discussion: High BMI High, discussed plan: lifestyle, weight reduction, dietary and physical activity Tobacco/Smoking Status: Tobacco use Status Tobacco use date assessed 11/25/23 07/16/24 13:10 Patient Tobacco Use Status Never used Tobacco 07/16/24 13:10 e-Cigarette/Vaping Use Never Used 07/16/24 13:10 Thrive Assessment: Date of Thrive Assessment Date Thrive assessed 11/25/23 07/16/24 13:10 Resp Effort & Inspection: normal respiratory effort Auscultation: clear to auscultation bilaterally Cardio Jugular venous distension: no JVD Rate: regular rate Rhythm: regular rhythm Heart sounds: S1 normal heart sound present and S2 normal heart sound present Extrem General: Yes full ROM Assessment and Plan Assessment & Plan (1) Benign essential hypertension: Code(s): I10 - Essential (primary) hypertension Plan: Continue amlodipine and hydrochlorothiazide. Blood pressure goal is equal or less than 130/80. (2) Morbid obesity with BMI of 40.0-44.9, adult: Code(s): E66.01 - Morbid (severe) obesity due to excess calories; Z68.41 - Body mass index [BMI] 40.0-44.9, adult Plan: Referred to weight management. Start diet and exercise. BMI goal is less than 30. (3) Candidal intertrigo: Code(s): B37.2 - Candidiasis of skin and nail Plan: Start nystatin cream. (4) GERD (gastroesophageal reflux disease): Code(s): K21.9 - Gastro-esophageal reflux disease without esophagitis Plan: Continue PPIs. Orders: Referrals Medical Weight Management Referral E66.01 - Morbid (severe) obesity due to excess calories, Z68.41 - Body mass index [BMI] 40.0-44.9, adult Medications: New nystatin 1 appl topical DAILY 2 weeks 15 grams 0RF Refilled amlodipine 10 mg PO DAILY 90 tabs 1RF I10 - Essential (primary) hypertension meloxicam 15 mg PO DAILY 30 tabs 0RF omeprazole 20 mg PO DAILY 90 days 90 caps 0RF Coding Level of Care Code Est Pt Level 4 (04399) Complex EM visit Add On G2211 Diagnoses Benign essential hypertension I10 Morbid obesity with BMI of 40.0-44.9, adult E66.01; Z68.41 Candidal intertrigo B37.2 GERD (gastroesophageal reflux disease) K21.9 Time Spent (min) 23
[2024-07-16 13:05] VITALS: BP 140/70; BMI 43.9
== END 2024-07-16 13:28 | disposition home or self-care (01) ==
PROVIDERS: PCP Internal Medicine; Visit Provider Internal Medicine
DX: I10 Essential (primary) hypertension (principal); E66.01 Morbid (severe) obesity due to excess calories; Z68.41 Body mass index [BMI] 40.0-44.9, adult; B37.2 Candidiasis of skin and nail; K21.9 Gastro-esophageal reflux disease without esophagitis

== ENCOUNTER → 2024-07-16 13:00 | Outpatient (BNVA) | payer OTHER, SELFPAY | PROVIDERS: PCP Internal Medicine; Visit Provider Internal Medicine | DX: I10 Essential (primary) hypertension (principal); E66.01 Morbid (severe) obesity due to excess calories; Z68.41 Body mass index [BMI] 40.0-44.9, adult; B37.2 Candidiasis of skin and nail; K21.9 Gastro-esophageal reflux disease without esophagitis; Z79.899 Other long term (current) drug therapy ==

== ENCOUNTER 2024-12-03 09:15 | Outpatient (AMB) | payer OTHER, SELFPAY ==
--- NOTE | 2024-12-03 09:17 | A.OFFPC_ITS ---
Vital Signs 12/03/24 09:19 Height 5 ft 10 in Weight 310 lb BMI 44.5 BP 160/90 H Blood Pressure Location Lt brachial Position Sitting Pulse 87 Pulse Source Pulse Oximeter Pulse Oximetry (%) 98 Oxygen Delivery Method Room Air Intake Visit Reasons: Annual Exam Intake Note: Patient here for an annual physical exam, c/o intimacy issues he would like to discuss, FMLA Cataract Lens Generator Required: Yes Cataract Lens Generator Language: Aluminum Shingle Roofer Name: Shruthi Esteves MD Information Interpreted: non-clinical & clinical Accompanied by: Spouse Allergies oxycodone Adverse Reaction (Severe, Verified 12/03/24 09:43) sweating, dizziness Medication List - Last Reconciled 12/03/24 by Shruthi Esteves MD amlodipine 10 mg PO DAILY CPAP (CPAP Machine/Device) autoPAP 6-20 cm H2O hydrochlorothiazide 25 mg PO DAILY 90 days meloxicam 15 mg PO DAILY nystatin 1 appl topical DAILY 2 weeks omeprazole 20 mg PO DAILY 90 days tirzepatide (weight loss) (Zepbound) 2.5 mg (0.5 mL) subcut QWEEK 4 weeks Tobacco use date assessed: 12/03/24 Dental Screening Dental Screen Date: 12/03/24 Did you have a dental visit in the last 12 months?: No Did you have a dental problem in the last 6 months where you did not have access to dental care?: No Was dental information given to patient?: Patient has dentist HPI HPI Comments History of Present Illness Details The patient is a 58-year-old male presenting for his physical exam with a left fibular fracture. The injury occurred three days ago when the patient slipped on ice while cleaning his car, resulting in a substantial fall with immediate onset of pain, dizziness, and nausea. The incident led to a visit to the hospital where imaging confirmed a distal fibular fracture. Surgical intervention was deemed unnecessary, and a protective boot was applied. The patient is instructed to avoid weight-bearing on the left leg, using crutches for mobility. The patient reported severe pain, leading to dizziness and an inability to call for help. Medication administered includes ibuprofen for pain management, switched from a previous prescription of meloxicam. Additionally, the patient has hypertension managed with amlodipine and hydrochlorothiazide, dyslipidemia, gastroesophageal reflux disease managed with omeprazole, and erectile dysfunction, for which testosterone levels will be evaluated. There is a significant family history of pancreatic cancer in the mother, renal cancer in the father, and newly diagnosed diabetes in his sister. The patient has a sedentary lifestyle with obesity noted, which is being addressed with a weight management referral. An allergy to oxycodone, previously causing severe dizziness and sweating, was reported, leading to its discontinuation. - Up-to-date tetanus vaccination (vaccin ated less than 10 years ago) - Colon cancer screening with Cologuard done in 2023; next due in 2026 - Laboratory tests (including cholestero l and glucose) conducted 6 months ago indicated satisfactory results - Weight management plan initiated, antonio beltre to address morbid obesity [facility] Medical History (Updated 12/03/24 @ 10:57 by Shruthi Esteves MD) Morbid obesity with BMI of 40.0-44.9, adult Morbid obesity due to excess calories Morbid obesity with BMI of 45.0-49.9, adult Impaired fasting glucose Benign essential hypertension Surgical History S/P excision of lipoma (~2001) Family History (Updated 12/03/24 @ 09:53 by Shruthi Esteves MD) Father Diabetes Mother Diabetes Pancreatic cancer Family/Other Substance use disorder Social History Housing: Apartment Alcohol intake: current Alcohol intake frequency: holidays/special occasions only Alcohol type: beer Patient Tobacco Use Status: Never used Tobacco e-Cigarette/Vaping Use: Never Used Second Hand Smoke Exposure: No service: No 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al status: employed 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 1. Little interest or pleasure in doing things: not at all 2. Feeling down, depressed, or hopeless: not at all 3. Trouble falling or staying asleep, or sleeping too much: nearly every day 4. Feeling tired or having little energy: not at all 5. Poor appetite or overeating: not at all 6. Feeling bad about yourself - or that you are a failure or have let yourself or your family down: not at all 7. Trouble concentrating on things, such as reading the newspaper or watching television: not at all 8. Moving or speaking so slowly that other people could have noticed. Or the opposite - being so fidgety or restless that you have been moving around a lot more than usual: not at all 9. Thoughts that you would be better off or of hurting yourself in some way: not at all Total score: 3 Depression Screening Interpretation: Positive Depression Screening Follow-up: Existing condition and Follow-up Visit Requested Depression Screening Done: Yes 21261 - PHQ-9 Billing: Yes Source: Developed by Drs. Jeremy Friend, Alicia Mckeon, Josep Donnelly and colleagues, with an educational joe from [employer]. Thrive Questionnaire Date Thrive assessed: 12/03/24 I am a: Patient What is your living situation today?: I have a steady place to live Within the past 12 months, did the food you bought not last and you didn't have the money to get more?: I choose not to answer this question Within the past 12 months, did you worry whether your food would run out before you got money to buy more?: I choose not to answer this question Do you have trouble paying for medicines?: I choose not to answer this question Do you have trouble getting transportation to medical appointments?: No Do you have trouble paying your heating and electricity bill?: Yes Do you have trouble taking care of your child, family member or friend?: No Do you have trouble with day-to-day activities such as bathing, preparing meals, shopping, managing finances, etc.?: I choose not to answer this question Are you currently unemployed and looking for a job?: No Are you interested in more education?: No Please select the resources that you would like help with: Paying for medicine Currently or been in a relationship where the following occur: No concerns reported THRIVE Score: 1 AUDIT C Alcohol Use Questionnaire (AUDIT-C) 1. How often do you have a drink containing alcohol?: 2-4 times a month 2. How many drinks containing alcohol do you have on a typical day when you are drinking?: 5 or 6 3. How often do you have six or more drinks on one occasion?: Monthly Total Score: 6 Score Reviewed/Action Taken: Yes (Advise to cut down on drinking alcohol) GAEL-7 AMB Questionnaire GAEL-7 Date GAEL - 7 assessed: 12/03/24 Feeling nervous, anxious, or on edge: 0 = Not at all Not being able to stop or control worryin = Not at all Worrying too much about different things: 0 = Not at all Trouble relaxin = Not at all Being so restless that it is hard to sit still: 0 = Not at all Becoming easily annoyed or irritable: 1 = Several days Feeling afraid as if something awful might happen: 0 = Not at all Total GAEL-7 score (0-4 normal; 5-9 mild; 10-14 moderate; 15-21 severe): 1 Source: Developed by Drs. Jeremy Friend, Alicia Mckeon, Josep Donnelly and colleagues, with an educational joe from [employer]. GAEL-7 Assessment Billing GAEL-7 Assessment Tool: GAEL-7 Assessment 99307 Review of Systems Const All systems reviewed & are unremarkable except as noted in HPI and below Card Denies chest pain at rest, Denies chest pain with activity, Denies edema, Denies irregular heart rhythm, Denies claudication, Denies dyspnea, Denies dyspnea on exertion, Denies orthopnea, Denies paroxysmal nocturnal dyspnea and Denies slow heart rate Resp Denies cough, Denies dyspnea and Denies dyspnea on exertion GI Denies abdominal pain, Denies change in bowel habits, Denies excessive flatus, Denies nausea and Denies vomiting Musc Reports arthralgias and Reports limited range of motion Neuro Denies behavioral changes and Denies lack of coordination Psych Denies behavioral changes Physical exam (Primary Care) Vital Signs: Last Vital Signs Pulse 87 12/03/24 09:19 BP 160/90 H 12/03/24 09:19 Pulse Ox 98 12/03/24 09:19 Oxygen Delivery Method Room Air 12/03/24 09:19 BMI result Body Mass Index 44.5 BMI Assessment/Plan discussion: High BMI High, discussed plan: lifestyle, weight reduction, dietary and physical activity Tobacco/Smoking Status: Tobacco use Status Tobacco use date assessed 12/03/24 12/03/24 09:19 Patient Tobacco Use Status Never used Tobacco 12/03/24 09:19 e-Cigarette/Vaping Use Never Used 12/03/24 09:19 PHQ-9: PHQ-9 Score PHQ-9: Total score 3 12/03/24 10:06 Depression Screening Interpretation: Positive Depression Screening Follow-up: Existing condition and Follow-up Visit Requested Thrive Assessment: Date of Thrive Assessment Date Thrive assessed 12/03/24 12/03/24 09:19 Currently or been in a relationship where the following occur: No concerns reported Const General: in distress mild Limitations: crutches HENMT Head: Yes normal to inspection, Yes normocephalic and Yes atraumatic Ears: external ears normal Eyes General: appearance normal, both eyes and all related structures Eyelids: Yes eyelids normal Conjunctivae: conjunctivae normal Neck Neck: Yes normal visual inspection and Yes supple Resp Effort & Inspection: normal respiratory effort Auscultation: clear to auscultation bilaterally Cardio Jugular venous distension: no JVD Rate: regular rate Rhythm: regular rhythm Heart sounds: S1 normal heart sound present and S2 normal heart sound present GI Inspection: Yes normal to inspection Palpation (GI): Soft to palpation and nontender Auscultation: normal bowel sounds Skin General skin exam: no rashes or lesions noted Neuro General: no focal motor deficits Extrem General: Yes full ROM Psych Appearance: grossly normal Office Procedures Flu Questionnaire Does the patient have a severe egg allergy?: No Immunizations Fluarix Triv [id number] (PF) 45 mcg (15 mcg x 3)/0.5 mL IM syringe Performing Provider: Shruthi Esteves MD [facility] Documented (not given) by: MINDI Little on 12/03/24 10:06 Reason Not Given: Patient Refused Coding Level of Care Code Est Pt Level 3 (69410) Est Pt Prev Care 40-64y(55725) Diagnoses Adult general medical exam Z00.00 Morbid obesity with BMI of 40.0-44.9, adult E66.01; Z68.41 Erectile dysfunction N52.9 Left fibular fracture S82.402A Additional Codes GAEL-7 Assessment Billing - GAEL-7 Assessment Tool: GAEL-7 Assessment 00640 ([id number]) PHQ-9 - 67459 - PHQ-9 Billing: Yes ([id number]) Time Spent (min) 40 Assessment & Plan Assessment & Plan (1) Adult general medical exam: Code(s): Z00.00 - Encounter for general adult medical examination without abnormal findings Category: Medical (2) Morbid obesity with BMI of 40.0-44.9, adult: Code(s): E66.01 - Morbid (severe) obesity due to excess calories; Z68.41 - Body mass index [BMI] 40.0-44.9, adult Category: Medical (3) Erectile dysfunction: Code(s): N52.9 - Male erectile dysfunction, unspecified Category: Medical (4) Left fibular fracture: Code(s): S82.402A - Unspecified fracture of shaft of left fibula, initial encounter for closed fracture Category: Medical Plan - Continue use of ibuprofen for pain management, with dosing adjusted as discussed - Avoid any weight-bearing on the left leg; use crutches for mobility support - Follow-up scheduled with chargemaster specialist at [facility] for continued fracture management - Assessment and management of hypertension with ongoing medications amlodipine and hydrochlorothiazide) - Weight management plan initiated; patient referred to dietitian for obesity management - Initiation of lab work to evaluate testosterone levels and subsequent referral to urology as necessary - Re-evaluation of medication for gastroesophageal reflux disease omeprazole) Patient was informed and verbally consented to the use of an ambient scribe for clinic note documentation during this visit. I discussed with the patient the importance of immobilization and non-weight bearing on the left leg to facilitate healing of the fibular fracture. I explained the role of using crutches to prevent further harm and emphasized the necessity of scheduled follow-up with orthopedic specialists for comprehensive care. We conversed about current management for hypertension, dyslipidemia, and GERD, ensuring adherence to medications and lifestyle changes. Weight management was particularly addressed, considering the patient's morbid obesity, involving a referral for specialized care. I explained the need for lab testing of testosterone levels to explore potential causes of erectile dysfunction and the prospect of urology consultation. Risks and benefits of using ibuprofen versus meloxicam were reviewed, given the patient's previous adverse reactions to oxycodone and gastrointestinal protection with omeprazole. Orders: Orders Lipid Panel Today E66.01 - Morbid (severe) obesity due to excess calories, Z68.41 - Body mass index [BMI] 40.0-44.9, adult Comprehensive [place]. Panel Fast Today E66.01 - Morbid (severe) obesity due to excess calories, Z68.41 - Body mass index [BMI] 40.0-44.9, adult Testosterone, Free/Total Today N52.9 - Male erectile dysfunction, unspecified Influenza [id number] Immunization Today Z23 - Encounter for immunization Referrals Medical Weight Management Referral E66.01 - Morbid (severe) obesity due to excess calories, Z68.41 - Body mass index [BMI] 40.0-44.9, adult Medications: New ibuprofen 800 mg PO Q8H PRN 90 tabs 0RF pain 30 days Refilled amlodipine 10 mg PO DAILY 90 tabs 1RF I10 - Essential (primary) hypertension Discontinued tirzepatide (weight loss) (Zepbound) for 4 weeks Discontinued Reason: Insurance Denied 2.5 mg (0.5 mL) subcut QWEEK 4 weeks 2 mL 0RF E66.01 - Morbid (severe) obesity due to excess calories, G47.33 - Obstructive sleep apnea (adult) (pediatric), I10 - Essential (primary) hypertension, Z68.41 - Body mass index [BMI] 40.0-44.9, adult Patient Instructions: - Use crutches for mobility and do not bear weight on the left leg until further notice. - Continue taking ibuprofen as prescribed for pain management. - Maintain current medical therapies for blood pressure and GERD. - Attend your orthopedic follow-up appointment for fracture assessment. - Reduce alcohol consumption to three to four servings to manage weight and overall health. - Undergo fasting lab tests as advised and follow up with urology pending results. - Follow weight management guidance and expect referral contact for specialized help. - Avoid any medications previously causing allergic reactions.
[2024-12-03 09:19] VITALS: BP 160/90; PULSE 87; O2SAT 98; BMI 44.5
--- OUTSIDE RECORDS SUMMARY | 2024-12-03 09:19 | XMS_ITS | Clinical Summary ---
Author Organization [facility] Address [address] [place] [address] Care Team Providers Care Bottoming Machine Operator Name Role Phone Unavailable Primary Care Provider Unavailabl e Source Comments PLEASE NOTE, if this patient is a minor, it may be UNLAWFUL to discuss sensitive information that is contained in these records (such as FAMILY PLANNING, MENTAL HEALTH or SUBSTANCE ABUSE) with the minor patient's parent or other person without the patient's specific authorization.[facility] Immunizations Name Administration Dates Next Due Moderna COVID-19 Vaccine, re d cap blue label, 12+ Primary Series 03/16/2021,02/16/2021 Social History Tobacco Use Types Packs/Day Years Used Date Smoking Tobacco: Never Assessed Social Connections Answer Date Recorded Social Connections and Isolation 0 02/16/2021 Financial Resource Strain Answer Date R ecorded Financial Resource Strain 0 2020 Stress Answer Date Recorded Stress 0 02/16/2021 Physical Activity Answer Date Recorded Physical Activity 0 02/16/2021 Food Insecurity Answer Date Recorded Food 0 02/16/2021 Transportation Needs Answer Date Record ed Transportation 0 02/16/2021 Housing Stability Answer Date Recorded Housing 0 02/16/2021 Safety and Environment Answer Date Marcelo rded Safety 0 02/16/2021 Utilities Answer Date Recorded Utilities 0 02/16/2021 Employment Answer Date Recorded Employment 0 02/16/2021 Sex and Gender Information Value Date Recorded Sex Assigned at Not on file Legal Sex Male 12:25 PM PDT Gender Identity Not on file Sexual Orientation Not on file Plan of Treatment Health Maintenance Due Date Last Done Comments Diabetes Screening 1964 Hepatitis C Screening 1964 Lipid Screening 1964 Tobacco Screening 1964 HIV Screening 12/30/1979 Annual Preventive Care Visit 1982 Hypertension Screening (#1) 1982 Imm-Hepatitis B (1 of 3 - 19 + 3-dose series) 12/30/1983 CT Colonography 2009 Colonoscopy 2009 Colorectal Cancer Screening 2009 FIT/gFOBT 2009 Fecal DNA 2009 Flexible Sigmoidoscopy 2009 Imm-Zoster, Recombinant (1 of 2) 2014 Imm-DTaP/Tdap/Td (1 - Tdap) 06/13/2018 06/12/2018 Alcohol and Drug Screen 10/28/2023 Depression Annual Screen 10/28/2023 [id number] ( season) 2024 021, 02/16/2021 Imm-Influenza (#1) 2024 Insurance [employer]
--- OUTSIDE RECORDS SUMMARY | 2024-12-03 09:19 | XMS_ITS | Clinical Summary ---
Author Organization [facility] Address [address] [place] [address] Care Team Providers Care Oil Winterizer Name Role Phone Unavailable Primary Care Provider Unavailabl e Social History Tobacco Use Types Packs/Day Years Used Date Smoking Tobacco: Never Assessed Sex and Gender Information Value Date Recorded Sex Assigned at Not on file Gender Identity Not on file Sexual Orientation Not on file Plan of Treatment Health Maintenance Due Date Last Done Comments DTaP,Tdap,and Td Vaccines (1 - Tdap) 12/30/1983 Hepatitis B Vaccines (1 of 3 - 19+ 3-dose series) 12/30/1983 Zoster Vaccines (1 of 2) 2014 Cholesterol Screening (Lipid Panel) 06/22/2024 Colorectal Cancer Screening: Colonoscopy 06/22/2024 Depression Screening 06/22/2024 HIV Screening 06/22/2024 Hepatitis C Screening 06/22/2024 Social Influencers of Health Screening 06/22/2024 COVID-19 Vaccine ( - 2023-2 5 season) 2024 Influenza Vaccine (#1) 2024 RSV Immunization Patients 60 + Years Old (1 - 1-dose 75+ series) 12/30/2039 HIB Vaccines Aged Out No longer eligi ble based on patient's age to complete this topic HPV Vaccines Aged Out No longer eligi ble based on patient's age to complete this topic Hepatitis A Vaccines Aged Out No long er eligible based on patient's age to complete this topic IPV Vaccines Aged Out No longer eligi ble based on patient's age to complete this topic MMR Vaccines Aged Out No longer eligi ble based on patient's age to complete this topic Meningococcal ACWY Vaccine Aged Out N o longer eligible based on patient's age to complete this topic Pneumococcal Vaccine: Pediat rics (0 to 5 Years) and At-Risk Patients (6 to 64 Years) Aged Out No longer eligible b ased on patient's age to complete this topic RSV Immunization Patients Un kian 20 months Aged Out No longer eligible b ased on patient's age to complete this topic Varicella Vaccines Aged Out No longer eligible based on patient's age to complete this topic
== END 2024-12-03 10:05 | disposition home or self-care (01) ==
PROVIDERS: PCP Internal Medicine; Visit Provider Internal Medicine
DX: Z00.00 Encounter for general adult medical examination without abnormal findings (principal); N52.9 Male erectile dysfunction, unspecified; E66.01 Morbid (severe) obesity due to excess calories; Z68.41 Body mass index [BMI] 40.0-44.9, adult; S82.402A Unspecified fracture of shaft of left fibula, initial encounter for closed fracture

== ENCOUNTER → 2024-12-03 09:15 | Outpatient (BNVA) | payer OTHER, SELFPAY | PROVIDERS: PCP Internal Medicine; Visit Provider Internal Medicine | DX: Z00.00 Encounter for general adult medical examination without abnormal findings (principal); E66.01 Morbid (severe) obesity due to excess calories; Z68.41 Body mass index [BMI] 40.0-44.9, adult; N52.9 Male erectile dysfunction, unspecified; S82.402A Unspecified fracture of shaft of left fibula, initial encounter for closed fracture; Z28.21 Immunization not carried out because of patient refusal; W00.0XXA Fall on same level due to ice and snow, initial encounter; Y93.89 Activity, other specified; Y92.9 Unspecified place or not applicable; Y99.9 Unspecified external cause status | CPT/HCPCS: 96127 ==

== ENCOUNTER → 2024-12-24 11:11 | Outpatient (BNVA) | payer OTHER, SELFPAY | PROVIDERS: PCP Internal Medicine ==

== ENCOUNTER 2025-02-11 11:51 | Emergency (ER) | payer OTHER, SELFPAY ==
--- NOTE | ~2025-02-11 | XR_ITS ---
EXAMINATION: XR CHEST CLINICAL INFORMATION: cough, dyspnea COMPARISON: 04/17/2017. TECHNIQUE: 2 views of the chest were obtained. FINDINGS: The cardiac, hilar, and mediastinal contours are normal. The lungs are clear bilaterally. Azygos lobe noted. There is no pneumothorax or pleural effusion. There is no focal osseous or soft tissue abnormality. XR/XR chest 2V IMPRESSION: No active pulmonary disease. Electronically signed by: Per Conway MD 02/11/2025 12:20 PM EDT
[2025-02-11 12:00] VITALS: BP 153/80; PULSE 99; RESP 20; TEMP 36.8; O2SAT 96; BMI 48.0
--- NOTE | 2025-02-11 12:01 | ED.GENADULT ---
HPI - General Adult General Chief complaint: Dyspnea Stated complaint: diff breathing sent in by pcp Time Seen by Provider: 02/11/25 13:15 Source: patient and old records reviewed Mode of arrival: ambulatory Limitations: no limitations History of Present Illness ED Provider: SANTINO LEIVA narrative: 59 yo male with PMH of JOAQUIN, GERD, arthritis, obesity, HTN here with c/o URI symptoms and now worsening cough with wheezing x 1 week. No travel, no fevers, no n/v/d. No sick contacts he just feels he is not getting better. He gets hot then has chills. He has never used inhaler before and has never smoked. He is able to eat and drink MD complaint: wheezing Onset (ago): day(s) (5) Location: chest Relieving factors: none Exacerbating factors: movement Associated symptoms: cough, fever/chills and shortness of breath Treatments prior to arrival: none Related Data Previous Rx's ?Medication ?Instructions ?Recorded CPAP (CPAP Machine/Device) #1 ea 01/21/24 nystatin 100,000 unit/gram topical 1 appl topical DAILY 2 weeks #15 07/16/24 cream grams hydrochlorothiazide 25 mg tablet 25 mg PO DAILY 90 days #90 tabs 07/20/24 amlodipine 10 mg tablet 10 mg PO DAILY #90 tabs 12/24/24 omeprazole 20 mg capsule,delayed 20 mg PO DAILY 90 days #90 caps 12/24/24 release ibuprofen 800 mg tablet 800 mg PO Q8H PRN pain 30 days #90 02/10/25 tabs albuterol sulfate 90 mcg/actuation 2 puff inhalation QID PRN 02/11/25 aerosol inhaler shortness of breath or wheezing #6.7 grams azithromycin 250 mg tablet 250 mg PO DAILY 4 days #4 tabs 02/11/25 prednisone 20 mg tablet 40 mg (2 x 20 mg) PO DAILY 4 days 02/11/25 #8 tabs Allergies Allergy/AdvReac Type Severity Reaction Status Date / Time oxycodone AdvReac Severe sweating, Verified 02/11/25 12:01 dizziness Review of Systems Review of Systems: Constitutional : No Fever, pos Chills ENT/Mouth : No Hoarseness, No sore throat, No Rhinorrhea Eyes: No Redness, No Discharge, No Vision Changes Cardiovascular : No Chest Pain, positive SOB, positive Dyspnea on Exertion, No Edema Respiratory : positive Cough, pos Sputum, positive Wheezing, Gastrointestinal : No Nausea, No Vomiting, No Diarrhea, No abdominal Pain Genitourinary : No Dysuria, No Hematuria Musculoskeletal : No joint pain, No Myalgias Skin : No rash Neuro : No Weakness, No Numbness, No Headache All other systems reviewed and are negative [facility] Past Medical History Medical History Morbid obesity with BMI of 40.0-44.9, adult Morbid obesity due to excess calories Morbid obesity with BMI of 45.0-49.9, adult Impaired fasting glucose Benign essential hypertension Surgical History S/P excision of lipoma (~2001) Family History Family History (Updated 12/03/24 @ 09:53 by Shruthi Esteves MD) Father Diabetes Mother Diabetes Pancreatic cancer Family/Other Substance use disorder Social History Social History Housing: Apartment Unable to assess alcohol history related to: Unknown Alcohol intake: current Alcohol intake frequency: holidays/special occasions only Alcohol type: beer Patient Tobacco Use Status: Never used Tobacco e-Cigarette/Vaping Use: Never Used Second Hand Smoke Exposure: No Use of substances other than those prescribed or required for medical reasons: Unknown Advance Directives: No Advance Directives Information Provided: Yes Do you have a plan to hurt others: No Plan service: No 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al status: employed 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 Oriented X3. No acute distress. Eyes: Pupils equal, round and reactive to light. ENT: Pharynx normal. Neck: Normal inspection. Neck supple. CVS: Normal heart rate and rhythm. Pulses normal. Respiratory: No respiratory distress. Breath sounds rhonchi with diffuse exp wheezes Abdomen: Soft and nontender. Skin: Skin warm and dry. Normal skin color. Normal skin turgor. Extremities: non pitting lower extremity edema symmetric. No calf ttp Neuro: Oriented X 3. No motor deficit. No sensory deficit. CN2-12 intact Course Course Course Narrative: This is a rapid medical exam performed by Elsie Sands NP: Additional HPI, ROS, PE not included below will be deferred to primary provider. Patient is a 59-year-old male with history of HTN, JOAQUIN on CPAP, obesity, GERD presenting with 5 days of cough, dyspnea, headaches, body aches. Denies sore throat. Plan: viral serology, cxr Medications Administered Discontinued Medications Generic Name Dose Route Start Last Admin Trade Name Freq PRN Reason Stop Dose Admin Azithromycin 500 mg 02/11/25 13:28 02/11/25 14:12 Azithromycin 500 Mg Tablet PO 02/11/25 13:29 500 mg ONCE ONE Administration Albuterol Sulfate 5 mg/ 0 mg 02/11/25 13:51 02/11/25 13:54 Albuterol/Ipratropium 3 ml INHALE 02/11/25 13:52 1 each ONCE ONE Administration Prednisone 40 mg 02/11/25 13:28 02/11/25 14:12 Prednisone 20 Mg Tablet PO 02/11/25 13:29 40 mg ONCE ONE Administration Medical Decision Making Medical Decision Making [facility] Narrative: 59 yo male with PMH of JOAQUIN, GERD, arthritis, obesity, HTN here with c/o cough, wheezing, sputum production feeling hot with sweats and chills. He is not labored or toxic appearing at this time he appears to have bronchitis - no smoking or asthma hx will start on steroids, CXR, viral panel - neb therapy and INH if it helps with PO abx and prednisone to go home with. Differential Diagnosis Differential Diagnoses: The differential diagnosis associated with the presentation includes URI, bronchitis, asthma Admission/Observation Consideration of admission/observation: Escalation of care including admission/observation considered lungs CTAB now 100% on RA feels better stable for DC Lab Data [facility] Lab Attestation statement: I reviewed the patient's lab results. Labs: Lab Results 02/11/25 Range/Units 12:16 Influenza Type A (PCR) NEGATIVE (Negative) Influenza Type B (PCR) NEGATIVE (Negative) RSV RNA Qual (PCR) NEGATIVE (Negative) SARS-CoV-2 RNA (RT-PCR) NEGATIVE (Negative) Independent Interpretation I performed an independent interpretation of an: Plain X-Ray (no pneumonia) Radiology Impression Discussion of test interpretation with radiology: I have reviewed the radiologist's reading. Independent Historian Clinical information obtained from an independent historian. History obtained from or confirmed by: Spouse External Record Review External record reviewed: Outpatient record Prescription Management I considered prescription management with: Antibiotic and Other Discharge Plan Discharge Clinical Impression: Bronchitis Patient Disposition: Home, Self-Care Instructions: Acute Bronchitis (ED) Additional Instructions: negative for covid flu rsv chest xray normal no pneumonia return for worsening symptoms or concerns no improvement chest pains, trouble breathing or any other concerns On azithromycin, call your provider if you develop new ringing in your ears, new problems hearing, dizziness, palpitations, abdominal pain, nausea, or diarrhea. USE INHALER EVERY 4 HOURS 2 PUFFS NEEDED NEXT DOSE OF PREDNISONE AND AZITHROMYCIN IS TOMORROW Prescriptions: New azithromycin 250 mg tablet 250 mg PO DAILY 4 Days Qty: 4 0RF Rx Instructions: start on day 2 of therapy prednisone 20 mg tablet 40 mg PO DAILY 4 Days Qty: 8 0RF albuterol sulfate 90 mcg/actuation HFA aerosol inhaler 2 puff inhalation QID PRN (Reason: shortness of breath or wheezing) Qty: 6.7 0RF No Action (DME) CPAP Machine/Device Device See Rx Instructions .Route Qty: 1 0RF Rx Instructions: autoPAP 6-20 cm H2O hydrochlorothiazide 25 mg tablet 25 mg PO DAILY 90 Days Qty: 90 1RF amlodipine 10 mg tablet 10 mg PO DAILY Qty: 90 1RF omeprazole 20 mg capsule,delayed release(DR/EC) 20 mg PO DAILY 90 Days Qty: 90 0RF ibuprofen 800 mg tablet 800 mg PO Q8H PRN (Reason: pain) 30 Days Qty: 90 0RF nystatin 100,000 unit/gram cream 1 appl topical DAILY 14 Days Qty: 15 0RF Stand Alone Forms: Work/School Release Print Language: Arabic
[2025-02-11 13:03] LABS: Influenza A PCR NEGATIVE (Negative); Influenza B PCR NEGATIVE (Negative); Resp Syncy Virus RNA Qual PCR NEGATIVE (Negative); SARS COV2 PCR INHOUSE NEGATIVE (Negative)
[2025-02-11] MEDS: Albuterol Sulfate 5 MG, Albuterol/Iprat 2.5/0.5MG 3 ML 3 ML INHALE (13:54)
[2025-02-11 13:58] VITALS: PULSE 81; RESP 18; O2SAT 96
[2025-02-11] MEDS: Azithromycin 500 MG TABLET PO (14:12)
[2025-02-11] MEDS: predniSONE 20 MG TABLET 40 MG PO (14:12)
[2025-02-11 15:07] VITALS: BP 162/72; PULSE 91; RESP 18; TEMP 36.4; O2SAT 100
[2025-02-11] MEDS: Albuterol Sulfate 90 MCG 8 GM INHALER 2 PUFF INHALE (15:29)
[2025-02-11 15:32] VITALS: BP 150/70; PULSE 91; RESP 18; TEMP 36.4; O2SAT 100
--- OUTSIDE RECORDS SUMMARY | 2025-02-11 16:25 | XMS_ITS | Clinical Summary ---
Author Organization [facility] Address [address] [place] [address] Care Team Providers Care Insurance Collector Name Role Phone Unavailable Primary Care Provider Unavailabl e Source Comments PLEASE NOTE, if this patient is a minor, it may be UNLAWFUL to discuss sensitive information that is contained in these records (such as FAMILY PLANNING, MENTAL HEALTH or SUBSTANCE ABUSE) with the minor patient's parent or other person without the patient's specific authorization.[facility] Immunizations Immunization Administration Dates Next Due Moderna COVID-19 Vaccine, [...] Health Maintenance Due Date Last Done Comments Anxiety Screening 1965 Diabetes Screening 1964 Hepatitis C Screening 1964 Lipid Screening 1964 Tobacco Screening 1964 HIV Screening 12/30/1979 Hypertension Screening (#1) 1982 CT Colonography 2009 Colonoscopy 2009 Colorectal Cancer Screening 2009 FIT/gFOBT 2009 Fecal DNA 2009 Flexible Sigmoidoscopy 2009 Imm-Zoster, Recombinant (1 o f 2) 2014 Imm-DTaP/Tdap/Td (1 - Tdap) 06/13/2018 06/12/2018 [id number] (2023- season) 2024 03/16/2021, 02/16/2021 Imm-Influenza (#1) 2024 Alcohol and Drug Screen 10/28/2024 Depression Annual Screen 10/28/2024 Imm-Hepatitis B Aged Out No longer el igible based on patient's age to complete this topic Insurance [employer]
--- OUTSIDE RECORDS SUMMARY | 2025-02-11 16:25 | XMS_ITS | Clinical Summary ---
Author Organization [facility] ity Address [address] [place] [address] Care Team Providers Care Weld Technician Name Role Phone Unavailable Primary Care Provider Unavailabl e Social History Tobacco Use Types Packs/Day Years Used Date Smoking Tobacco: Never Assessed Sex and Gender Information Value Date Recorded Sex Assigned at Not on file Legal Sex Male 4:57 PM EST Gender Identity Not on file Sexual Orientation Not on file Plan of Treatment Health Maintenance Due Date Last Done Comments DTaP,Tdap,and Td Vaccines (1 - Tdap) 12/30/1983 Pneumococcal Vaccine: 50+ Ye ars (1 of 1 - PCV) 2014 Zoster Vaccines (1 of 2) 2014 Cholesterol Screening (Lipid Panel) 06/22/2024 Colorectal Cancer Screening: Colonoscopy 06/22/2024 Depression Screening 06/22/2024 HIV Screening 06/22/2024 Hepatitis C Screening 06/22/2024 Social Influencers of Health Screening 06/22/2024 COVID-19 Vaccine (2023-2 5 season) 2024 Influenza Vaccine (Season Ended) 2025 RSV Immunization Adult Patie nts (1 - 1-dose 75+ series) 12/30/2039 HIB Vaccines Aged Out No longer eligi ble based on patient's age to complete this topic HPV Vaccines Aged Out No longer eligi ble based on patient's age to complete this topic Hepatitis A Vaccines Aged Out No long er eligible based on patient's age to complete this topic Hepatitis B Vaccines Aged Out No long er eligible [...] patient's age to complete this topic Meningococcal B Vaccine Aged Out No l onger eligible based on patient's age to complete [...]
== END 2025-02-11 15:33 | disposition home or self-care (01) ==
PROVIDERS: Registered Nurse Emergency; Emergency Provider Emergency Medicine; PCP Internal Medicine
DX: J40 Bronchitis, not specified as acute or chronic (principal); R05.9 Cough, unspecified; I10 Essential (primary) hypertension; Z03.818 Encounter for observation for suspected exposure to other biological agents ruled out
CPT/HCPCS: 0241U; 71046; 94640; 99284

== ENCOUNTER → 2025-02-11 12:02 | Outpatient (BNV) | payer OTHER, SELFPAY | PROVIDERS: PCP Internal Medicine; Visit Provider Radiology Diagnostic Radiology | DX: R05.9 Cough, unspecified (principal); R06.00 Dyspnea, unspecified | CPT/HCPCS: 71046 ==

== ENCOUNTER 2025-04-03 09:27 | Outpatient (REF) | payer OTHER, SELFPAY ==
[2025-04-03 10:47] LABS: Alanine Aminotransferase 55 U/L (0-40); Albumin Level 4.1 g/dL (3.5-5.0); Alkaline Phosphatase 49 U/L (39-117); Anion Gap 10 (12-20); Aspartate Amino Transferase 33 U/L (5-37); Bilirubin Total 0.4 mg/dL (0.0-1.0); Blood Urea Nitrogen 18 mg/dL (9-16); Calcium 9.3 mg/dL (8.4-10.2); Carbon Dioxide 31 mmol/L (22-29); Chloride 102 mmol/L (96-108); Cholesterol 173 mg/dL (<200); Estimated Glomerular Filt Rate > 60; Glucose Fasting 113 mg/dL (60-99); HDL Cholesterol 39 mg/dL (>40); LDL Cholesterol Calculated 108 mg/dL (<100); Potassium 4.2 mmol/L (3.3-5.1); Sodium 139 mmol/L (135-145); Total Protein 7.6 g/dL (6.5-8.0); Triglycerides 133 mg/dL (<150)
[2025-04-10 23:39] LABS: Testosterone, Free 13.3 pg/mL (35.0-155.0); Testosterone, Total 110 ng/dL (250-1100)
== END 2025-04-03 09:28 | disposition home or self-care (01) ==
LOC: HO.LAB 09:27
PROVIDERS: PCP Internal Medicine; Visit Provider Internal Medicine
DX: E66.01 Morbid (severe) obesity due to excess calories (principal); Z68.41 Body mass index [BMI] 40.0-44.9, adult; N52.9 Male erectile dysfunction, unspecified
CPT/HCPCS: 36415; 80053; 80061; 84402; 84403

== ENCOUNTER 2025-04-05 15:15 | Outpatient (AMB) | payer OTHER, SELFPAY ==
[2025-04-05 15:25] VITALS: BP 166/90; BMI 48.9
--- NOTE | 2025-04-05 15:25 | A.OFFPC_ITS ---
Vital Signs 04/05/25 15:25 Height 5 ft 10 in Weight 341 lb BMI 48.9 BP 166/90 H Blood Pressure Location Lt brachial Position Sitting Intake Visit Reasons: bp Intake Note: Patient here for a follow up BP Level Vial Inspector Required: No Accompanied by: Spouse Allergies oxycodone Adverse Reaction (Severe, Verified 04/05/25 15:46) sweating, dizziness Medication List - Last Reconciled 04/05/25 by Shruthi Esteves MD albuterol sulfate 90 mcg/actuation 2 puffs inhalation QID PRN amlodipine 10 mg PO DAILY CPAP (CPAP Machine/Device) autoPAP 6-20 cm H2O hydrochlorothiazide 25 mg PO DAILY 90 days ibuprofen 800 mg PO Q8H PRN 30 days nystatin 1 appl topical DAILY 2 weeks omeprazole 20 mg PO DAILY 90 days Tobacco use date assessed: 12/03/24 Dental Screening Dental Screen Date: 12/03/24 HPI HPI Comments History of Present Illness Details The patient is a 59 year old male presenting with a follow-up for hypertension and medication management. He has a documented history of essential hypertension treated with amlodipine and hydrochlorothiazide, though recent readings indicate that blood pressure remains elevated. The patient has not previously used losartan as part of his treatment plan. There is a history of prediabetes with increased glucose levels since the last visit. He has obstructive sleep apnea. The patient has morbid obesity, as evidenced by a significant increase in weight and BMI over the past two months. His medical history includes a prior fracture in the left leg, posing potential limitations on work capacity. He experiences allergic reactions when exposed to oxycodone, characterized by dizziness and sweating. The patient leads a relatively sedentary lifestyle, with no history of smoking and infrequent alcohol use. He previously underwent a Cologuard test, and testosterone levels are currently pending. [facility] Medical History (Updated 04/05/25 @ 16:39 by Shruthi Esteves MD) Morbid obesity with BMI of 45.0-49.9, adult Morbid obesity with BMI of 40.0-44.9, adult Morbid obesity due to excess calories Impaired fasting glucose Benign essential hypertension Surgical History S/P excision of lipoma (~2001) Family History Father Diabetes Mother Diabetes Pancreatic cancer Family/Other Substance use disorder Social History Housing: Apartment Unable to assess alcohol history related to: Unknown Alcohol intake: current Alcohol intake frequency: holidays/special occasions only Alcohol type: beer Patient Tobacco Use Status: Never used Tobacco e-Cigarette/Vaping Use: Never Used Second Hand Smoke Exposure: No service: No 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al status: unemployed 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: [employer] worker Cognitive needs: No Hearing needs: No Vision needs: No Questionnaire Thrive Questionnaire Date Thrive assessed: 12/01/24 I am a: Patient What is your living situation today?: I have a steady place to live Within the past 12 months, did the food you bought not last and you didn't have the money to get more?: I choose not to answer this question Within the past 12 months, did you worry whether your food would run out before you got money to buy more?: I choose not to answer this question Do you have trouble paying for medicines?: I choose not to answer this question Do you have trouble getting transportation to medical appointments?: No Do you have trouble paying your heating and electricity bill?: Yes Do you have trouble taking care of your child, family member or friend?: No Do you have trouble with day-to-day activities such as bathing, preparing meals, shopping, managing finances, etc.?: I choose not to answer this question Are you currently unemployed and looking for a job?: No Are you interested in more education?: No Please select the resources that you would like help with: Paying for medicine THRIVE Score: 1 GAEL-7 AMB Questionnaire GAEL-7 Date GAEL - 7 assessed: 12/03/24 Source: Developed by Drs. Jeremy Friend, Alicia Mckeon, Josep Donnelly and colleagues, with an educational joe from [employer]. Review of Systems Const All systems reviewed & are unremarkable except as noted in HPI and below Card Denies chest pain at rest, Denies chest pain with activity, Denies edema, Denies irregular heart rhythm, Denies claudication, Denies dyspnea, Denies dyspnea on exertion, Denies orthopnea, Denies paroxysmal nocturnal dyspnea and Denies slow heart rate Resp Denies cough, Denies dyspnea and Denies dyspnea on exertion Physical exam (Primary Care) Vital Signs: Last Vital Signs BP 166/90 H 04/05/25 15:25 BMI result Body Mass Index 48.9 BMI Assessment/Plan discussion: High BMI High, discussed plan: lifestyle, weight reduction, dietary and physical activity Tobacco/Smoking Status: Tobacco use Status Tobacco use date assessed 12/03/24 04/05/25 15:31 Patient Tobacco Use Status Never used Tobacco 04/05/25 15:31 e-Cigarette/Vaping Use Never Used 04/05/25 15:31 Thrive Assessment: Date of Thrive Assessment Date Thrive assessed 12/01/24 04/05/25 15:31 Resp Effort & Inspection: normal respiratory effort Auscultation: clear to auscultation bilaterally Cardio Jugular venous distension: no JVD Rate: regular rate Rhythm: regular rhythm Heart sounds: S1 normal heart sound present and S2 normal heart sound present Extrem General: Yes full ROM Coding Level of Care Code Est Pt Level 4 (13540) Complex EM visit Add On G2211 Diagnoses Impaired glucose tolerance R73.02 Morbid obesity with BMI of 45.0-49.9, adult E66.01; Z68.42 Benign essential hypertension I10 GERD (gastroesophageal reflux disease) K21.9 JOAQUIN (obstructive sleep apnea) G47.33 Time Spent (min) 24 Assessment & Plan Assessment & Plan (1) Impaired glucose tolerance: Code(s): R73.02 - Impaired glucose tolerance (oral) Category: Medical (2) Morbid obesity with BMI of 45.0-49.9, adult: Code(s): E66.01 - Morbid (severe) obesity due to excess calories; Z68.42 - Body mass index [BMI] 45.0-49.9, adult Category: Medical (3) Benign essential hypertension: Code(s): I10 - Essential (primary) hypertension Category: Medical (4) GERD (gastroesophageal reflux disease): Code(s): K21.9 - Gastro-esophageal reflux disease without esophagitis Category: Medical (5) JOAQUIN (obstructive sleep apnea): Code(s): G47.33 - Obstructive sleep apnea (adult) (pediatric) Category: Medical Plan I plan to introduce losartan to the patient's hypertension regimen to improve blood pressure control. Keeping in mind his prediabetes status, I advise significant lifestyle changes, emphasizing weight loss and dietary improvements to prevent progression. It is crucial to monitor pending testosterone results and to evaluate liver enzyme levels. Follow-up will be required to review blood pressure responses and lifestyle changes' impacts. Consideration on activity limitations will continue pending full recovery from the left leg fracture, ensuring safe resumption of work. Patient was informed and verbally consented to the use of an ambient scribe for clinic note documentation during this visit. I discussed with the patient the addition of losartan to his current blood pressure regimen due to inadequate control, explaining the potential benefits of further reducing risks of hypertensive complications. Lifestyle modifications were emphasized for weight and glucose management, noting the patient's BMI as a critical factor affecting his health. We reviewed the pending testosterone results scheduled to aid in future management decisions. The patient understood the importance of these measures and agreed with the outlined plan. Follow-up arrangements were discussed to ensure adequacy of therapeutic interventions and adjustments as needed. Orders: Orders Comprehensive [place]. Panel Fast 4 Months R73.02 - Impaired glucose tolerance (oral) Medications: New tirzepatide (weight loss) (Zepbound) for 4 weeks 2.5 mg (0.5 mL) subcut QWEEK 2 mL 0RF 4 weeks E66.01 - Morbid (severe) obesity due to excess calories, Z68.42 - Body mass index [BMI] 45.0- 49.9, adult losartan 25 mg PO DAILY 90 tabs 1RF 90 days I10 - Essential (primary) hypertension Patient Instructions: - Continue current medications and add losartan as directed. - Monitor blood pressure daily and record readings. - Maintain a healthy diet and incorporate physical activity as feasible. - Follow lifestyle modifications to manage weight and prediabetes. - Report any side effects from medication, such as dizziness. - Schedule follow-up appointments for continued care and monitoring. - Follow up on pending testosterone results.
--- OUTSIDE RECORDS SUMMARY | 2025-04-05 17:00 | XMS_ITS | Clinical Summary ---
Author Organization [facility] ity Address [address] [place] [address] Care Team Providers Care Pattern Maker Name Role Phone Unavailable Primary Care Provider [...]
== END 2025-04-05 16:00 | disposition home or self-care (01) ==
LOC: HO.HMCH 15:16
PROVIDERS: PCP Internal Medicine; Visit Provider Internal Medicine
DX: R73.02 Impaired glucose tolerance (oral) (principal); E66.01 Morbid (severe) obesity due to excess calories; Z68.42 Body mass index [BMI] 45.0-49.9, adult; I10 Essential (primary) hypertension; K21.9 Gastro-esophageal reflux disease without esophagitis; G47.33 Obstructive sleep apnea (adult) (pediatric)

== ENCOUNTER → 2025-04-05 15:15 | Outpatient (BNVA) | payer OTHER, SELFPAY | PROVIDERS: PCP Internal Medicine; Visit Provider Internal Medicine ==

== ENCOUNTER 2025-05-19 13:54 | Outpatient (AMB) | payer OTHER, SELFPAY ==
--- NOTE | 2025-05-19 14:06 | MHC.PC.OV ---
Vital Signs 05/19/25 14:07 Height 5 ft 10 in Weight 341 lb BMI 48.9 BP 152/90 H Blood Pressure Location Lt brachial Position Sitting Intake Visit Reasons: Pain behind the leg Intake Note: patient c/o bilateral feet pain with ankle swelling, knee pains, low back pain Zipper Measurer Required: No Accompanied by: Spouse Allergies oxycodone Adverse Reaction (Severe, Verified 05/19/25 14:24) sweating, dizziness Medication List - Last Reconciled 05/19/25 by Shruthi Esteves MD albuterol sulfate 90 mcg/actuation 2 puffs inhalation QID PRN amlodipine 10 mg PO DAILY CPAP (CPAP Machine/Device) autoPAP 6-20 cm H2O hydrochlorothiazide 25 mg PO DAILY 90 days ibuprofen 800 mg PO Q8H PRN 30 days losartan 25 mg PO DAILY 90 days nystatin 1 appl topical DAILY 2 weeks omeprazole 20 mg PO DAILY 90 days tirzepatide (weight loss) (Zepbound) 2.5 mg (0.5 mL) subcut QWEEK 4 weeks Tobacco use date assessed: 12/03/24 Dental Screening Dental Screen Date: 12/03/24 HPI HPI Comments History of Present Illness Details The patient is a 59-year-old male presenting with multiple musculoskeletal complaints and concerns about prediabetes and low testosterone. He also has hypertension with blood pressure elevated today and I will increase losartan. Blood pressure will be recheck in 3 weeks by nurse navigator. The patient has been informed of prediabetes, with advice to monitor carbohydrate and sugar intake while maintaining protein consumption. Low testosterone levels were noted, and the patient was advised to consult with a urologist for potential testosterone supplementation, which may improve erectile dysfunction. The patient reports experiencing numbness in the last three toes when foot swelling occurs, suggesting a possible pinched nerve in the back. He experiences widespread musculoskeletal pain, including in the back, neck, shoulders, elbows, and knees, which may indicate osteoarthritis or another form of arthritis. The patient has a history of a leg fracture, which resulted in five months of immobility, raising concerns about potential blood clots. He also reports depressive symptoms, exacerbated by financial stress and reduced work capacity. He does have bilateral leg pain. He is morbidly obese with a BMI of 48.9 and GLP 1 agonist were declined by insurance. Was advised to do diet and exercise as tolerated. Not able to work due to bilateral leg pain and weakness. For now can work 6 hours a day. [facility] Medical History (Updated 05/19/25 @ 14:48 by Shruthi Esteves MD) Morbid obesity with BMI of 45.0-49.9, adult Morbid obesity with BMI of 40.0-44.9, adult Morbid obesity due to excess calories Impaired fasting glucose Benign essential hypertension Surgical History S/P excision of lipoma (~2001) Family History Father Diabetes Mother Diabetes Pancreatic cancer Family/Other Substance use disorder Social History Housing: Apartment Unable to assess alcohol history related to: Unknown Alcohol intake: current Alcohol intake frequency: holidays/special occasions only Alcohol type: beer Patient Tobacco Use Status: Never used Tobacco e-Cigarette/Vaping Use: Never Used Second Hand Smoke Exposure: No service: No 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al status: unemployed 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: [employer] Cognitive needs: No Hearing needs: No Vision needs: No Questionnaire PHQ-9 Over the last 2 weeks, how often have you been bothered by any of the following problems? 1. Little interest or pleasure in doing things: more than half the days 2. Feeling down, depressed, or hopeless: several days 3. Trouble falling or staying asleep, or sleeping too much: not at all 4. Feeling tired or having little energy: more than half the days 5. Poor appetite or overeating: several days 6. Feeling bad about yourself - or that you are a failure or have let yourself or your family down: not at all 7. Trouble concentrating on things, such as reading the newspaper or watching television: not at all 8. Moving or speaking so slowly that other people could have noticed. Or the opposite - being so fidgety or restless that you have been moving around a lot more than usual: not at all 9. Thoughts that you would be better off or of hurting yourself in some way: not at all Total score: 6 Depression Screening Interpretation: Positive Depression Screening Follow-up: Existing condition and Follow-up Visit Requested Depression Screening Done: Yes 12399 - PHQ-9 Billing: Yes Source: Developed by Drs. Jeremy Friend, Alicia Mckeon, Josep Donnelly and colleagues, with an educational joe from [employer] - It's what's in store. Thrive Questionnaire Date Thrive assessed: 12/01/24 I am a: Patient What is your living situation today?: I have a steady place to live Within the past 12 months, did the food you bought not last and you didn't have the money to get more?: I choose not to answer this question Within the past 12 months, did you worry whether your food would run out before you got money to buy more?: I choose not to answer this question Do you have trouble paying for medicines?: I choose not to answer this question Do you have trouble getting transportation to medical appointments?: No Do you have trouble paying your heating and electricity bill?: Yes Do you have trouble taking care of your child, family member or friend?: No Do you have trouble with day-to-day activities such as bathing, preparing meals, shopping, managing finances, etc.?: I choose not to answer this question Are you currently unemployed and looking for a job?: No Are you interested in more education?: No Please select the resources that you would like help with: Paying for medicine THRIVE Score: 1 GAEL-7 AMB Questionnaire GAEL-7 Date GAEL - 7 assessed: 12/03/24 Source: Developed by Drs. Jeremy Friend, Alicia Mckeon, Josep Donnelly and colleagues, with an educational joe from [employer] - It's what's in store. Review of Systems Const All systems reviewed & are unremarkable except as noted in HPI and below Card Denies chest pain at rest, Denies chest pain with activity, Denies edema, Denies irregular heart rhythm, Denies claudication, Denies dyspnea, Denies dyspnea on exertion, Denies orthopnea, Denies paroxysmal nocturnal dyspnea and Denies slow heart rate Resp Denies cough, Denies dyspnea and Denies dyspnea on exertion Musc Denies abnormal gait, Denies atrophy, Denies deformity and Denies limited range of motion Skin/Breast Denies bleeding lesions, Denies changing lesions and Denies rash Neuro Denies abnormal gait and Denies lack of coordination Physical exam (Primary Care) Vital Signs: Last Vital Signs BP 152/90 H 05/19/25 14:07 BMI result Body Mass Index 48.9 BMI Assessment/Plan discussion: High BMI High, discussed plan: lifestyle, weight reduction, dietary and physical activity Tobacco/Smoking Status: Tobacco use Status Tobacco use date assessed 12/03/24 05/19/25 14:19 Patient Tobacco Use Status Never used Tobacco 05/19/25 14:19 e-Cigarette/Vaping Use Never Used 05/19/25 14:19 PHQ-9: PHQ-9 Score PHQ-9: Total score 6 05/19/25 14:31 Depression Screening Interpretation: Positive Depression Screening Follow-up: Existing condition and Follow-up Visit Requested Thrive Assessment: Date of Thrive Assessment Date Thrive assessed 12/01/24 05/19/25 14:19 Resp Effort & Inspection: normal respiratory effort Auscultation: clear to auscultation bilaterally Cardio Jugular venous distension: no JVD Rate: regular rate Rhythm: regular rhythm Heart sounds: S1 normal heart sound present and S2 normal heart sound present Extrem General: Yes full ROM Coding Level of Care Code Est Pt Level 4 (78635) Complex EM visit Add On G2211 Diagnoses Benign essential hypertension I10 Impaired glucose tolerance R73.02 Testosterone deficiency E34.9 Morbid obesity with BMI of 45.0-49.9, adult E66.01; Z68.42 Polyarthralgia M25.50 Bilateral leg pain M79.604; M79.605 Pain in both feet M79.671; M79.672 Bilateral shoulder pain M25.511; M25.512 Additional Codes PHQ-9 - 85063 - PHQ-9 Billing: Yes ([id number]) Time Spent (min) 25 Assessment & Plan Assessment & Plan (1) Benign essential hypertension: Code(s): I10 - Essential (primary) hypertension Category: Medical (2) Impaired glucose tolerance: Code(s): R73.02 - Impaired glucose tolerance (oral) Category: Medical (3) Testosterone deficiency: Code(s): E34.9 - Endocrine disorder, unspecified Category: Medical (4) Morbid obesity with BMI of 45.0-49.9, adult: Code(s): E66.01 - Morbid (severe) obesity due to excess calories; Z68.42 - Body mass index [BMI] 45.0-49.9, adult Category: Medical (5) Polyarthralgia: Code(s): M25.50 - Pain in unspecified joint Category: Medical (6) Bilateral leg pain: Code(s): M79.604 - Pain in right leg; M79.605 - Pain in left leg Category: Medical (7) Pain in both feet: Code(s): M79.671 - Pain in right foot; M79.672 - Pain in left foot Category: Medical (8) Bilateral shoulder pain: Code(s): M25.511 - Pain in right shoulder; M25.512 - Pain in left shoulder Category: Medical Plan The patient will be referred to a urologist for evaluation and potential testosterone supplementation to address low testosterone levels and associated erectile dysfunction. Laboratory tests will be conducted to evaluate for rheumatoid arthritis or other forms of arthritis, given the widespread musculoskeletal pain and numbness in the toes. An ultrasound may be considered to rule out blood clots in the legs, especially given the history of a leg fracture and prolonged immobility. The patient is advised to monitor carbohydrate and sugar intake to manage prediabetes and maintain current weight. A follow-up appointment is recommended in four weeks to reassess symptoms and evaluate the effectiveness of any interventions. Patient was informed and verbally consented to the use of an ambient scribe for clinic note documentation during this visit. I discussed with the patient the importance of managing prediabetes through dietary modifications, specifically reducing carbohydrate and sugar intake while maintaining protein consumption. We talked about the low testosterone levels and the potential benefits of testosterone supplementation, which could improve erectile dysfunction. I explained the need for laboratory tests to evaluate for rheumatoid arthritis or other forms of arthritis due to the patient's widespread musculoskeletal pain. We also considered the possibility of an ultrasound to rule out blood clots in the legs, given the patient's history of a leg fracture and prolonged immobility. A follow-up appointment was recommended in four weeks to assess the patient's progress and the effectiveness of any interventions. Orders: Orders XR cervical spine 2V 05/19/25 M54.2 - Cervicalgia XR lumbar spine 2-3V 05/19/25 M54.16 - Radiculopathy, lumbar region XR Elbow Ez 2V 05/19/25 M25.521 - Pain in right elbow, M25.522 - Pain in left elbow XR Foot Ez 2V 05/19/25 M79.671 - Pain in right foot, M79.672 - Pain in left foot C Reactive Protein 05/19/25 M25.50 - Pain in unspecified joint US venous duplex LE BI 05/19/25 M79.604 - Pain in right leg, M79.605 - Pain in left leg XR Shoulder Ez min 2V 05/19/25 M25.511 - Pain in right shoulder, M25.512 - Pain in left shoulder Cyclic Citrullinated Peptide 05/19/25 M25.50 - Pain in unspecified joint Erythrocyte Sedimentation Rate 05/19/25 M25.50 - Pain in unspecified joint Rheumatoid Factor 05/19/25 M25.50 - Pain in unspecified joint SHRUTHI Reflex Titer and Pattern 05/19/25 M25.50 - Pain in unspecified joint Referrals Urology Referral E34.9 - Endocrine disorder, unspecified Rheumatology Referral M25.50 - Pain in unspecified joint Medications: Discontinued losartan Discontinued Reason: Patient Completed Course 25 mg PO DAILY 90 days 90 tabs 1RF I10 - Essential (primary) hypertension Patient Instructions: - Monitor carbohydrate and sugar intake to manage prediabetes. - Follow up with a urologist for testosterone evaluation and potential supplementation. - Attend laboratory tests as advised to check for arthritis. - Consider an ultrasound to rule out blood clots in the legs. - Return for a follow-up appointment in four weeks.
[2025-05-19 14:07] VITALS: BP 152/90; BMI 48.9
--- OUTSIDE RECORDS SUMMARY | 2025-05-19 14:39 | XMS_ITS | Clinical Summary ---
Author Organization [facility] Address [address] [place] [address] Care Team Providers Care Radio Producer Name Role Phone Unavailable Primary Care Provider [...] 2014 Imm-DTaP/Tdap/Td (1 - Tdap) 06/13/2018 06/12/2018 [id number] ( season) 2024 03/16/2021, 02/16/2021 Imm-Influenza (#1) 2024 Alcohol and Drug Screen 10/28/2024 Depression Annual Screen 10/28/2024 Imm-Hepatitis B Aged Out No longer el igible based on patient's age to complete this topic Insurance [employer]
--- OUTSIDE RECORDS SUMMARY | 2025-05-19 14:39 | XMS_ITS | Clinical Summary ---
Author Organization [facility] ity Address [address] [place] [address] Care Team Providers Care Basic Combatant Swimmer Name Role Phone Unavailable Primary Care Provider [...] Panel) 06/22/2024 Colorectal Cancer Screening: Colonoscopy 06/22/2024 HIV Screening 06/22/2024 Hepatitis C Screening 06/22/2024 Social Influencers of Health Screening 06/22/2024 COVID-19 Vaccine ( - 2023-2 5 season) 2024 Depression Screening 10/28/2024 Influenza Vaccine (#1) 2025 RSV Immunization Adult Patie nts (1 [...]
== END 2025-05-19 14:49 | disposition home or self-care (01) ==
LOC: HO.HMCH 13:55
PROVIDERS: PCP Internal Medicine; Visit Provider Internal Medicine
DX: I10 Essential (primary) hypertension (principal); E66.01 Morbid (severe) obesity due to excess calories; Z68.42 Body mass index [BMI] 45.0-49.9, adult; M25.50 Pain in unspecified joint; M79.604 Pain in right leg; R73.02 Impaired glucose tolerance (oral); E34.9 Endocrine disorder, unspecified; M79.605 Pain in left leg; M79.671 Pain in right foot; M79.672 Pain in left foot; M25.511 Pain in right shoulder; M25.512 Pain in left shoulder

== ENCOUNTER → 2025-05-19 13:54 | Outpatient (BNVA) | payer OTHER, SELFPAY | PROVIDERS: PCP Internal Medicine; Visit Provider Internal Medicine | DX: I10 Essential (primary) hypertension (principal); R20.0 Anesthesia of skin; R73.02 Impaired glucose tolerance (oral); E34.9 Endocrine disorder, unspecified; E66.01 Morbid (severe) obesity due to excess calories; M79.604 Pain in right leg; M79.605 Pain in left leg; M79.671 Pain in right foot; M79.672 Pain in left foot; M25.511 Pain in right shoulder; M25.512 Pain in left shoulder; Z68.42 Body mass index [BMI] 45.0-49.9, adult | CPT/HCPCS: 96127 ==

== ENCOUNTER 2025-05-21 13:48 | Outpatient (REF) | payer OTHER, SELFPAY ==
--- NOTE | ~2025-05-21 | US_ITS ---
EXAMINATION: US LOWER EXTREMITY VEINS BILATERAL HISTORY: M79.604 - Pain BLE COMPARISON: Comparison is made with the prior ultrasound examination of the right lower extremity dated 04/16/2024. TECHNIQUE: Duplex and color Doppler sonographic examination of the deep venous system of the bilateral lower extremities was performed. FINDINGS: The right common femoral, superficial femoral, and popliteal veins are patent demonstrating normal compressibility, spontaneous flow, and augmentation. There is a normal color and spectral Doppler waveform appearance of the visualized deep venous system above the knee. The posterior tibial and peroneal veins are patent. The left common femoral, superficial femoral, and popliteal veins are patent demonstrating normal compressibility, spontaneous flow, and augmentation. There is a normal color and spectral Doppler waveform appearance of the visualized deep venous system above the knee. The posterior tibial and peroneal veins are patent. US/US venous duplex LE BI IMPRESSION: No evidence of acute DVT in the bilateral lower extremities. Electronically signed by: Jeremy Main MD 05/21/2025 02:43 PM EDT
--- OUTSIDE RECORDS SUMMARY | 2025-05-21 13:50 | XMS_ITS | Clinical Summary ---
Author Organization [facility] ity Address [address] [place] [address] Care Team Providers Care Director Medical Writing Name Role Phone Unavailable Primary Care Provider [...]
--- OUTSIDE RECORDS SUMMARY | 2025-05-21 13:50 | XMS_ITS | Clinical Summary ---
Author Organization [facility] Address [address] [place] [address] Care Team Providers Care Varnish Cooker Name Role Phone Unavailable Primary Care Provider [...] 2014 Imm-DTaP/Tdap/Td (1 - Tdap) 06/13/2018 06/12/2018 [id number] ( season) 2024 03/16/2021, 02/16/2021 Imm-Influenza (#1) 2024 Alcohol and Drug Screen 10/28/2024 Depression Annual Screen 10/28/2024 Imm-Hepatitis B Aged Out No longer el igible based on patient's age to complete this topic Insurance [employer]
== END 2025-05-21 13:49 | disposition home or self-care (01) ==
LOC: HO.US 13:48
PROVIDERS: PCP Internal Medicine; Visit Provider Internal Medicine
DX: M79.604 Pain in right leg (principal); M79.605 Pain in left leg
CPT/HCPCS: 93970

== ENCOUNTER → 2025-05-21 13:50 | Outpatient (BNV) | payer OTHER, SELFPAY | PROVIDERS: PCP Internal Medicine; Visit Provider Radiology Diagnostic Radiology | DX: M79.604 Pain in right leg (principal); M79.605 Pain in left leg | CPT/HCPCS: 93970 ==

== ENCOUNTER 2025-05-25 12:55 | Outpatient (REF) | payer OTHER, SELFPAY ==
--- NOTE | ~2025-05-25 | XR_ITS ---
EXAMINATION: XR ELBOW 2 VIEWS BILATERAL HISTORY: M25.521 - Pain in right elbow COMPARISON: There are no prior studies available for comparison. FINDINGS: Six views of the bilateral elbows are submitted. Osseous mineralization is normal. There is no fracture or dislocation. The joint spaces are preserved. The soft tissues are unremarkable. There is no joint effusion. XR/XR Elbow Ez 2V IMPRESSION: Unremarkable examination of the bilateral elbows. Electronically signed by: Jeremy Main MD 05/25/2025 01:58 PM EDT
--- NOTE | ~2025-05-25 | XR_ITS ---
EXAMINATION: XR FOOT 2 VIEWS BILATERAL HISTORY: M79.671 - Pain in right foot COMPARISON: There are no prior studies available for comparison. FINDINGS: Six views of the bilateral feet are submitted. Osseous mineralization is normal. There is no acute fracture or dislocation. There is internal fixation of the distal left fibula. The joint spaces are preserved. There are bilateral plantar calcaneal spurs. There are vascular calcifications. XR/XR Foot Ez 2V IMPRESSION: Bilateral plantar calcaneal spurs. Otherwise unremarkable examination of the bilateral feet. Electronically signed by: Jeremy Main MD 05/25/2025 02:01 PM EDT
--- NOTE | ~2025-05-25 | XR_ITS ---
EXAMINATION: XR SHOULDER 2 OR MORE VIEWS BILATERAL HISTORY: M25.511 - Pain in right shoulder COMPARISON: Comparison is made with the prior examination of the right shoulder dated 07/04/2016. FINDINGS: Six views of the bilateral shoulders are submitted. Osseous mineralization is normal. There is no fracture or dislocation. There is moderate to severe osteoarthritis of the bilateral AC joints, with joint space narrowing and osteophyte formation. The glenohumeral joints are maintained. The soft tissues are unremarkable. 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 Electronically signed by: Jeremy Main MD 05/25/2025 01:59 PM EDT
--- NOTE | ~2025-05-25 | XR_ITS ---
EXAMINATION: XR LUMBOSACRAL SPINE CLINICAL INFORMATION: M54.16 - Radiculopathy, lumbar region COMPARISON: None available. TECHNIQUE: AP and lateral views. FINDINGS: Small marginal osteophyte formation and endplate sclerosis and lower thoracic and upper lumbar spine and to a lesser extent L4-5. No acute cortical disruption or malalignment. No lytic or blastic lesions. Vascular desiccation's, aorta. XR/XR lumbar spine 2-3V IMPRESSION: Mild multilevel thoracolumbar spondylosis. Electronically signed by: Miguel Ángel Alexander MD 05/25/2025 01:54 PM EDT
--- NOTE | ~2025-05-25 | XR_ITS ---
EXAMINATION: XR CERVICAL SPINE CLINICAL INFORMATION: M54.2 - Cervicalgia COMPARISON: None available. TECHNIQUE: AP lateral and swimmer's projection. Atlantoodontoid view. FINDINGS: Craniocervical junction is intact. Small marginal osteophyte formation C4-5. No acute cortical disruption or malalignment. No lytic or blastic lesions. Upper airways patent. XR/XR cervical spine 2V IMPRESSION: Mild spondylosis C4-5. Electronically signed by: Miguel Ángel Alexander MD 05/25/2025 01:53 PM EDT
--- OUTSIDE RECORDS SUMMARY | 2025-05-25 13:42 | XMS_ITS | Clinical Summary ---
Author Organization [facility] Address [address] [place] [address] Care Team Providers Care Real Estate Leasing Manager Name Role Phone Unavailable Primary Care Provider [...] 2014 Imm-DTaP/Tdap/Td (1 - Tdap) 06/13/2018 06/12/2018 [id number] ( season) 2024 03/16/2021, 02/16/2021 Imm-Influenza (#1) 2024 Alcohol and Drug Screen 10/28/2024 Depression Annual Screen 10/28/2024 Imm-Hepatitis B Aged Out No longer el igible based on patient's age to complete this topic Insurance [employer]
--- OUTSIDE RECORDS SUMMARY | 2025-05-25 13:42 | XMS_ITS | Clinical Summary ---
Author Organization [facility] ity Address [address] [place] [address] Care Team Providers Care Track Production Engineer Name Role Phone Unavailable Primary Care Provider [...]
[2025-06-01 22:43] LABS: Anti Nuclear Antibody Pattern Nuclear, Centromere; Anti Nuclear Antibody Screen POSITIVE (NEGATIVE); Anti Nuclear Antibody Titer 1:320 titer
== END 2025-05-25 12:56 | disposition home or self-care (01) ==
LOC: HO.LAB 12:55
PROVIDERS: Visit Provider Internal Medicine
DX: M54.2 Cervicalgia (principal); M25.521 Pain in right elbow; M25.522 Pain in left elbow; M25.511 Pain in right shoulder; M25.512 Pain in left shoulder; M54.16 Radiculopathy, lumbar region; M79.671 Pain in right foot; M79.672 Pain in left foot; M19.012 Primary osteoarthritis, left shoulder; M19.011 Primary osteoarthritis, right shoulder
CPT/HCPCS: 36415; 72040; 72100; 73030; 73070; 73620; 85652; 86038; 86039; 86140; 86200; 86431

== ENCOUNTER → 2025-05-25 13:12 | Outpatient (BNV) | payer OTHER, SELFPAY | PROVIDERS: Visit Provider Radiology Diagnostic Radiology | DX: M47.812 Spondylosis without myelopathy or radiculopathy, cervical region (principal); M47.815 Spondylosis without myelopathy or radiculopathy, thoracolumbar region; M19.019 Primary osteoarthritis, unspecified shoulder; M25.529 Pain in unspecified elbow; M77.30 Calcaneal spur, unspecified foot | CPT/HCPCS: 72040; 72100; 73030; 73070; 73620 ==

== ENCOUNTER 2025-08-05 15:30 | Outpatient (AMB) | payer OTHER, SELFPAY ==
[2025-08-05 15:33] VITALS: BP 142/86; PULSE 96; O2SAT 96; BMI 50.3
--- NOTE | 2025-08-05 15:33 | MHC.PC.OV ---
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5 mg (0.5 mL) subcut QWEEK 4 weeks Tobacco use date assessed: 08/05/25 Dental Screening Dental Screen Date: 08/05/25 Did you have a dental visit in the last 12 months?: Yes Did you have a dental problem in the last 6 months where you did not have access to dental care?: No Was dental information given to patient?: Patient has dentist HPI HPI Comments History of Present Illness Details The patient is a 59-year-old male presenting with concerns related to arthritis and hypertension management. The patient has a history of positive antinuclear antibody (SHRUTHI), suggesting a possible autoimmune arthritis, such as rheumatoid arthritis. He is scheduled to see a vp director of creative strategy next month for further evaluation. The patient reports significant osteoarthritis, particularly affecting his shoulders, which is the most severe area. He experiences difficulty with weightbearing activities, climbing, bending, and reaching above the shoulder. Hypertension has been noted, with current medication management including amlodipine and losartan. There is a consideration to increase the losartan dosage from 50 mg to 100 mg due to elevated blood pressure readings. The patient has obstructive sleep apnea and uses a CPAP machine. He is allergic to oxycodone, which causes sweating and dizziness. Laboratory results indicate a low testosterone level, and he is expected to see a urologist soon. His C-reactive protein (CRP) is elevated, indicating inflammation. The patient has prediabetes, managed with metformin and other medications. His recent blood glucose was 113 mg/dL, and his hemoglobin A1c has been stable at 5.1%. [facility]LY [facility] Medical History (Updated 08/05/25 @ 21:43 by Shruthi Esteves MD) Morbid obesity with BMI of 45.0-49.9, adult Morbid obesity with BMI of 40.0-44.9, adult Morbid obesity due to excess calories Impaired fasting glucose Benign essential hypertension Surgical History S/P excision of lipoma (~2001) Family History Father Diabetes Mother Diabetes Pancreatic cancer Family/Other Substance use disorder Social History Housing: Apartment Alcohol intake: current Alcohol intake frequency: holidays/special occasions only Alcohol type: beer Patient Tobacco Use Status: Never used Tobacco e-Cigarette/Vaping Use: Never Used Second Hand Smoke Exposure: No service: No 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al status: unemployed 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 7. Trouble concentrating on things, such as reading the newspaper or watching television: more than half the days 8. Moving or speaking so slowly that other people could have noticed. Or the opposite - being so fidgety or restless that you have been moving around a lot more than usual: several days 9. Thoughts that you would be better off or of hurting yourself in some way: not at all Source: Developed by Drs. Jeremy Friend, Alicia Mckeon, Josep Donnelly and colleagues, with an educational joe from [employer]. Thrive Questionnaire Date Thrive assessed: 12/01/24 I am a: Patient What is your living situation today?: I have a steady place to live Within the past 12 months, did the food you bought not last and you didn't have the money to get more?: I choose not to answer this question Within the past 12 months, did you worry whether your food would run out before you got money to buy more?: I choose not to answer this question Do you have trouble paying for medicines?: I choose not to answer this question Do you have trouble getting transportation to medical appointments?: No Do you have trouble paying your heating and electricity bill?: Yes Do you have trouble taking care of your child, family member or friend?: No Do you have trouble with day-to-day activities such as bathing, preparing meals, shopping, managing finances, etc.?: I choose not to answer this question Are you currently unemployed and looking for a job?: No Are you interested in more education?: No Please select the resources that you would like help with: Paying for medicine THRIVE Score: 1 AUDIT C Alcohol Use Questionnaire (AUDIT-C) 1. How often do you have a drink containing alcohol?: 2-4 times a month 2. How many drinks containing alcohol do you have on a typical day when you are drinking?: 5 or 6 3. How often do you have six or more drinks on one occasion?: Monthly Total Score: 6 Score Reviewed/Action Taken: Yes (Advise to cut down on drinking alcohol) GAEL-7 AMB Questionnaire GAEL-7 Date GAEL - 7 assessed: 12/03/24 Source: Developed by Drs. Jeremy Friend, Alicia Mckeon, Josep Donnelly and colleagues, with an educational joe from [employer]. Review of Systems Const All systems reviewed & are unremarkable except as noted in HPI and below Card Denies chest pain at rest, Denies chest pain with activity, Denies edema, Denies irregular heart rhythm, Denies claudication, Denies dyspnea, Denies dyspnea on exertion, Denies orthopnea, Denies paroxysmal nocturnal dyspnea and Denies slow heart rate Resp Denies cough, Denies dyspnea and Denies dyspnea on exertion Physical exam (Primary Care) Vital Signs: Last Vital Signs Pulse 96 08/05/25 15:33 BP 142/86 H 08/05/25 15:33 Pulse Ox 96 08/05/25 15:33 Oxygen Delivery Method Room Air 08/05/25 15:33 BMI result Body Mass Index 50.3 BMI Assessment/Plan discussion: High BMI High, discussed plan: lifestyle, weight reduction, dietary and physical activity Tobacco/Smoking Status: Tobacco use Status Tobacco use date assessed 08/05/25 08/05/25 15:34 Patient Tobacco Use Status Never used Tobacco 08/05/25 15:34 e-Cigarette/Vaping Use Never Used 08/05/25 15:34 Thrive Assessment: Date of Thrive Assessment Date Thrive assessed 12/01/24 08/05/25 15:34 Resp Effort & Inspection: normal respiratory effort Auscultation: clear to auscultation bilaterally Cardio Jugular venous distension: no JVD Rate: regular rate Rhythm: regular rhythm Heart sounds: S1 normal heart sound present and S2 normal heart sound present Extrem General: Yes full ROM Coding Level of Care Code Est Pt Level 4 (47235) Complex EM visit Add On G2211 Diagnoses Benign essential hypertension I10 Impaired glucose tolerance R73.02 Testosterone deficiency E34.9 Bilateral shoulder pain M25.511; M25.512 Left knee pain M25.562 Right knee pain M25.561 JOAQUIN (obstructive sleep apnea) G47.33 Morbid obesity with BMI of 50.0-59.9, adult E66.01; Z68.43 Time Spent (min) 23 Assessment & Plan Assessment & Plan (1) Benign essential hypertension: Code(s): I10 - Essential (primary) hypertension Category: Medical (2) Impaired glucose tolerance: Code(s): R73.02 - Impaired glucose tolerance (oral) Category: Medical (3) Testosterone deficiency: Code(s): E34.9 - Endocrine disorder, unspecified Category: Medical (4) Bilateral shoulder pain: Code(s): M25.511 - Pain in right shoulder; M25.512 - Pain in left shoulder Category: Medical (5) Left knee pain: Code(s): M25.562 - Pain in left knee Category: Medical (6) Right knee pain: Code(s): M25.561 - Pain in right knee Category: Medical (7) JOAQUIN (obstructive sleep apnea): Code(s): G47.33 - Obstructive sleep apnea (adult) (pediatric) Category: Medical (8) Morbid obesity with BMI of 50.0-59.9, adult: Code(s): E66.01 - Morbid (severe) obesity due to excess calories; Z68.43 - Body mass index [BMI] 50.0-59.9, adult Category: Medical Plan Plan Patient was informed and verbally consented to the use of an ambient scribe for clinic note documentation during this visit. 1. Autoimmune Arthritis (Suspected Due To Positive Shruthi) The patient is scheduled to see a vp director of creative strategy next month for further evaluation of the positive SHRUTHI, which suggests a possible autoimmune arthritis such as rheumatoid arthritis. 2. Osteoarthritis, Primarily In The Shoulders The patient experiences significant osteoarthritis in the shoulders, which limits his ability to perform weightbearing activities, climbing, bending, and reaching above the shoulder. Management includes pain control and physical therapy as needed. 3. Essential Hypertension The patient's hypertension is currently managed with amlodipine and losartan, with a consideration to increase the losartan dosage from 50 mg to 100 mg due to elevated blood pressure readings. 4. Obstructive Sleep Apnea The patient uses a CPAP machine for obstructive sleep apnea management. 5. Hypogonadism (Low Testosterone) The patient has low testosterone levels and is expected to see a urologist soon for further evaluation and management. 6. Impaired glucose tolerance The patient's glucose is managed with metformin and other medications, with recent blood glucose at 113 mg/dL and hemoglobin A1c stable at 5.1%. Orders: Orders Comprehensive [place]. Panel Fast 4 Months R73.02 - Impaired glucose tolerance (oral) XR knee LT 2V Today M25.562 - Pain in left knee XR knee RT 2V Today M25.561 - Pain in right knee Medications: New losartan 100 mg PO DAILY 90 tabs 1RF 90 days celecoxib (Celebrex) 100 mg PO BID PRN 60 caps 0RF pain 30 days Refilled tirzepatide (weight loss) (Zepbound) for 4 weeks 2.5 mg (0.5 mL) subcut QWEEK 2 mL 0RF 4 weeks E66.01 - Morbid (severe) obesity due to excess calories, Z68.42 - Body mass index [BMI] 45.0-49.9, adult nystatin 1 appl topical DAILY 15 grams 0RF 2 weeks Discontinued losartan Discontinued Reason: Patient Completed Course 50 mg PO DAILY 90 days 90 tabs 1RF
== END 2025-08-05 16:26 | disposition home or self-care (01) ==
LOC: HO.HMCH 15:31
PROVIDERS: PCP Internal Medicine; Visit Provider Internal Medicine
DX: I10 Essential (primary) hypertension (principal); R73.02 Impaired glucose tolerance (oral); E66.01 Morbid (severe) obesity due to excess calories; Z68.43 Body mass index [BMI] 50.0-59.9, adult; E34.9 Endocrine disorder, unspecified; M25.511 Pain in right shoulder; M25.512 Pain in left shoulder; M25.562 Pain in left knee; M25.561 Pain in right knee; G47.33 Obstructive sleep apnea (adult) (pediatric)

== ENCOUNTER → 2025-08-05 15:30 | Outpatient (BNVA) | payer OTHER, SELFPAY | PROVIDERS: PCP Internal Medicine; Visit Provider Internal Medicine | DX: I10 Essential (primary) hypertension (principal); M19.012 Primary osteoarthritis, left shoulder; M19.011 Primary osteoarthritis, right shoulder; G47.33 Obstructive sleep apnea (adult) (pediatric); R73.03 Prediabetes; E34.9 Endocrine disorder, unspecified; M25.562 Pain in left knee; M25.561 Pain in right knee; E66.01 Morbid (severe) obesity due to excess calories; Z68.43 Body mass index [BMI] 50.0-59.9, adult; Z99.89 Dependence on other enabling machines and devices | CPT/HCPCS: 99212 ==

== ENCOUNTER 2025-08-10 13:44 | Outpatient (REF) | payer OTHER, SELFPAY ==
--- OUTSIDE RECORDS SUMMARY | 2025-08-10 17:03 | XMS_ITS | Clinical Summary ---
Author Organization [facility] ity Address [address] [place] [address] Care Team Providers Care Sales Engineer Account Manager Name Role Phone Unavailable Primary Care Provider Unavailabl e Social History Tobacco Use Types Packs/Day Years Used Date Smoking Tobacco: Never Assessed Sex and Gender Information Value Date Recorded Sex Assigned at Not on file Legal Sex Male 4:57 PM EST Gender Identity Not on file Sexual Orientation Not on file Plan of Treatment Health Maintenance Due Date Last Done Comments Colorectal Cancer Screening: Colonoscopy 1964 DTaP,Tdap,and Td Vaccines (1 - Tdap) 12/30/1983 Pneumococcal Vaccine: 50+ Ye ars (1 of 1 - PCV) 2014 Zoster Vaccines (1 of 2) 2014 Cholesterol Screening (Lipid Panel) 06/22/2024 HIV Screening 06/22/2024 Hepatitis C Screening 06/22/2024 Social Influencers of Health Screening 06/22/2024 Depression Screening 10/28/2024 COVID-19 Vaccine ( - 2023-2 5 season) 2025 Influenza Vaccine (#1) 2025 RSV Immunization Adult [...]
== END 2025-08-10 13:45 | disposition home or self-care (01) ==
LOC: HO.LAB 13:44
PROVIDERS: PCP Internal Medicine; Visit Provider Nurse Practitioner Family
DX: E29.1 Testicular hypofunction (principal); N52.9 Male erectile dysfunction, unspecified; R31.29 Other microscopic hematuria; Z13.89 Encounter for screening for other disorder
CPT/HCPCS: 81003; 88112; 99202

== ENCOUNTER 2025-08-10 13:44 | Outpatient (AMB) | payer OTHER, SELFPAY ==
--- NOTE | 2025-08-10 13:50 | A.OFFVIS_ITS ---
Intake Visit Reasons: Testosterone/ED Intake Note: Patient is present for TESTOSTERONE/ED Urology Medication:NONE Antibiotic Allergy:NONE Blood Thinner:NONE Expanded Duty Dental Assistant Required: No Expanded Duty Dental Assistant Services: Expanded Duty Dental Assistant Present Expanded Duty Dental Assistant Name: Abhilash Rome Allergies oxycodone Adverse Reaction (Severe, Verified 08/10/25 14:21) sweating, dizziness Medication List - Last Reconciled 08/10/25 by Yessy Buck, COURT RECORDER- amlodipine 10 mg PO DAILY celecoxib (Celebrex) 100 mg PO BID PRN 30 days CPAP (CPAP Machine/Device) autoPAP 6-20 cm H2O hydrochlorothiazide 25 mg PO DAILY 90 days ibuprofen 800 mg PO Q8H PRN 30 days losartan 100 mg PO DAILY 90 days metformin 500 mg PO DAILY 90 days nystatin 1 appl topical DAILY 2 weeks omeprazole 20 mg PO DAILY 90 days tirzepatide (weight loss) (Zepbound) 2.5 mg (0.5 mL) subcut QWEEK 4 weeks HPI Comments Details: Devan is a very pleasant 59-year-old male patient of Dr. Sol who was accompanied by his significant other at today's office visit. He has a past medical history of obesity, prediabetes, hypertension. He presents to the office today as a new patient for hypogonadism as well as erectile dysfunction. In discussion with the patient today he reports over the last year he has been having issues with maintaining his erections at which time he followed up with his PCP and his testosterone was assessed and noted to be low and recommendations were made for urology referral for further assessment evaluation. These results were reviewed and communicated with the patient and his today. Testosterone: 04/21 110 We discussed at length potential causes of hypogonadism as well as erectile dysfunction. We did discussed further treatment options and risks and benefits of these treatment options. When asked he denies urinary urgency, urinary frequency, incontinence, nocturia, hematuria, dysuria, foul smelling urine, changes to urinary stream, flank pain, fever, and or chills. He is happy with his current voiding parameters. He denies any recent sicknesses and or previous anabolic steroid use. All questions were answered. He otherwise offers no other issues or concerns at this time. FORMERLY [facility] Medical History Morbid obesity with BMI of 45.0-49.9, adult Morbid obesity with BMI of 40.0-44.9, adult Morbid obesity due to excess calories Impaired fasting glucose Benign essential hypertension Surgical History S/P excision of lipoma (~2001) Family History Father Diabetes Mother Diabetes Pancreatic cancer Family/Other Substance use disorder Social History Housing: Apartment Alcohol intake: current Alcohol intake frequency: holidays/special occasions only Alcohol type: beer Patient Tobacco Use Status: Never used Tobacco e-Cigarette/Vaping Use: Never Used Second Hand Smoke Exposure: No service: No 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al status: unemployed 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: [employer]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 Cognitive needs: No Hearing needs: No Vision needs: No Review of Systems Const All systems reviewed & are unremarkable except as noted in HPI and below Physical Exam Const General: cooperative, healthy appearing, comfortable, no acute distress, well developed, alert and awake Nutritional Appearance: obese Orientation/consciousness: patient oriented x3 Limitations: language barrier HEENT Head: Yes normal to inspection, Yes normocephalic and Yes atraumatic Ears: hearing grossly normal bilaterally Eyes General: appearance normal, both eyes and all related structures Neck Neck: Yes normal visual inspection and Yes trachea midline Chest Chest palpation & inspection: normal inspection of the chest Resp Effort & Inspection: normal respiratory effort and able to speak in complete sentences Cardio Rate: regular rate GI Inspection: Yes normal to inspection General: Yes no CVA tenderness Back/Spine/Pelvis Back: no CVA tenderness Skin General skin exam: no rashes or lesions noted Neuro General: patient oriented x3 Extrem General: Yes normal to inspection Psych Appearance: grossly normal and well kempt Mental Status: mental status grossly normal Speech and movement: Normal speech and movement present and Clear speech present Affect: normal affect Attitude: cooperative Thought process: Normal thought process present Thought content: Normal thought content present Insight: Fair insight present (Psych) Judgement: Fair judgement present (Psych) Results AMB Urinalysis, Automated UA Leukoctes 0 Luz/uL Last Edit by WALTER Phillips on 08/10/25 14:20 UA Nitrite Negative Last Edit by WALTER Phillips on 08/10/25 14:20 UA Urobilinogen 0.2 mg/dL Last Edit [facility] on 08/10/25 14:2 0 UA Protein 0 mg/dL Last Edit by Ant [facility] on 08/10/25 14:20 UA pH 6.5 Last Edit by Ant Frances [facility] on 08/10/25 14:20 UA Blood 10 Quirino/uL Last Edit by Ant Frances [facility] on 08/10/25 14:20 UA Specific [place] 1.015 Last Edit by Ant Frances [facility] on 08/10/25 14: 20 UA Ketone Negative Last Edit by Ant Frances [facility] on 08/10/25 14:20 UA Bilirubin 0 mg/dL Last Edit by Ant Frances [facility] on 08/10/25 14:20 UA Glucose 0 mg/dL Last Edit by Ant Frances [facility] on 08/10/25 14:20 Results Reviewed Results Reviewed: Laboratory Last Values Urine pH (Auto) 6.5 08/10/25 14:19 Specific [place] (Auto) 1.015 08/10/25 14:19 Urine Protein (Auto) 0 mg/dL 08/10/25 14:19 Glucose (UA)(Auto) 0 mg/dL 08/10/25 14:19 Urine Ketones (Auto) Negative 08/10/25 14:19 Urine Blood (Auto) 10 Quirino/uL 08/10/25 14:19 Urine Nitrite (Auto) Negative 08/10/25 14:19 Urine Bilirubin (Auto) 0 mg/dL 08/10/25 14:19 Urine Urobilinogen (Auto) 0.2 mg/dL 08/10/25 14:19 Leukocyte Esterase (Auto) 0 Luz/uL 08/10/25 14:19 Assessment & Plan Assessment & Plan (1) Hypogonadism in male: Code(s): E29.1 - Testicular hypofunction Category: Medical (2) Erectile dysfunction: Code(s): N52.9 - Male erectile dysfunction, unspecified Category: Medical Plan In office urinalysis results reviewed with the patient today; as noted above. Recent labs reviewed with the patient today; as noted above. We did discussed potential causes of erectile dysfunction as well as hypogonadism and risks and benefits of these treatment options. We discussed the importance of weight loss in relation to urological conditions as well as overall health and well-being. He denies any bothersome urinary issues. He reports be happy with current voiding parameters. Will obtain testosterone, free testosterone, LH, FSH, prolactin, and estradiol for further assessment evaluation. Follow-up in 1-3 months with labs to be completed prior; or sooner with any issues, concerns, and or questions. Orders: Orders Prolactin Today E29.1 - Testicular hypofunction Urine Cytology Today R31.29 - Other microscopic hematuria AMB Urinalysis Automated Today Z13.9 - Encounter for screening, unspecified Estrad Free (Tot Ultra + Free) Today E29.1 - Testicular hypofunction Follicle Stimulating Hormone Today E29.1 - Testicular hypofunction Lutenizing Hormone Today E29.1 - Testicular hypofunction Sex Hormone Binding Globulin Today E29.1 - Testicular hypofunction Testosterone, Free/Total Today E29.1 - Testicular hypofunction Prostate Specific Antigen Today E29.1 - Testicular hypofunction Patient Instructions: The patient had an opportunity to ask questions regarding the treatment plan. All questions were answered. Physical exam, labs, and imaging were discussed and reviewed in detail. As well as risks, benefits, and discussion of treatment choices. No major barriers to understanding were identified. The patient expressed understanding and agreement with the above treatment plan. The patient was made aware they should contact our office by phone for worsening of their current condition, the appearance of new symptoms, or with any question s or concerns. Compliance is encouraged with any medications and follow up testing that is ordered. It is a privilege to be allowed the opportunity to participate in? your urological care.? Again, if you have any questions or concerns If you have any questions or concerns please do not hesitate to contact me. The office is [phone]. This note is constructed using voice recognition software. While every effort has been made to ensure accuracy fisheries diver errors may have been included. Yours sincerely, LIAT Navarro Coding Level of Care Code New Pt Level 3 (27694) Diagnoses Hypogonadism in male E29.1 Erectile dysfunction N52.9
== END 2025-08-10 14:33 | disposition home or self-care (01) ==
LOC: HO.HUSH 13:45
PROVIDERS: PCP Internal Medicine; Visit Provider Nurse Practitioner Family
DX: E29.1 Testicular hypofunction (principal); N52.9 Male erectile dysfunction, unspecified; Z13.9 Encounter for screening, unspecified
CPT/HCPCS: 99203

== ENCOUNTER 2025-09-09 08:48 | Outpatient (AMB) | payer OTHER, SELFPAY ==
--- OUTSIDE RECORDS SUMMARY | 2025-09-09 09:16 | XMS_ITS | Clinical Summary ---
Author Organization [facility] ity Address [address] [place] [address] Care Team Providers Care Perforator Loader Name Role Phone Unavailable Primary Care Provider [...] Screening 06/22/2024 Depression Screening 10/28/2024 COVID-19 Vaccine (1 - 2024-2 6 season) 2025 Influenza Vaccine (#1) 2025 RSV [...]
--- NOTE | 2025-09-09 09:21 | MHC.OFFVIS ---
Vital Signs 09/09/25 09:30 Height 5 ft 10 in Weight 353 lb 6.416 oz BMI 50.7 BP 142/90 H Blood Pressure Location Lt radial Position Sitting Pulse 89 Pulse Source Pulse Oximeter Pulse Oximetry (%) 98 Oxygen Delivery Method Room Air Intake Visit Reasons: joint pain/ New Patient Intake Note: New patient presents for joint pain. Patient c/o of lower back pain, bilateral knee pain and LT elbow pain and LT shoulder pain. Cell Feed Department Supervisor Required: Yes Cell Feed Department Supervisor Language: Test Analyst Services: Cell Feed Department Supervisor Present Cell Feed Department Supervisor Name: Gertrudis [id number] Information Interpreted: non-clinical & clinical Allergies oxycodone Adverse Reaction (Severe, Verified 09/09/25 09:27) sweating, dizziness HPI Comments Details: Patient is a 59 year old male with HTN, DM, GERD, and OA here today for evaluation of joint pain Currently has pain in his shoulders, bilateral knees, and low back pain It is hard for the patient to get dressed His weight also has a significant part to do with it as well PFSH Medical History Morbid obesity with BMI of 45.0-49.9, adult Morbid obesity with BMI of 40.0-44.9, adult Morbid obesity due to excess calories Impaired fasting glucose Benign essential hypertension Surgical History S/P excision of lipoma (~2001) Family History Father Diabetes Mother Diabetes Pancreatic cancer Family/Other Substance use disorder Social History Housing: Apartment Alcohol intake: current Alcohol intake frequency: holidays/special occasions only Alcohol type: beer Patient Tobacco Use Status: Never used Tobacco e-Cigarette/Vaping Use: Never Used Second Hand Smoke Exposure: No service: No 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al status: unemployed 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 Cognitive needs: No Hearing needs: No Vision needs: No Review of Systems Narrative Review of Systems Constitutional: Denies fever, chills, weight loss ENT: Denies vision changes, eye pain or eye redness, dental caries, dry mouth GI: Denies nausea, vomiting, diarrhea, abdominal pain, change in BM Pulm: Denies SOB, JENKINS, hemoptysis, wheezing Cards: Denies chest pain, palpitations Skin: Denies Raynaud's, rash, nail changes, photosensitivity, 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 Well appearing and in no apparent painful distress Morbidly obese male MSK Hands Right Hand: Able to make a fist. No swelling or tenderness to palpation of the MCPs, PIPs or DIPs. Left Hand: Able to make a fist. No swelling or tenderness to palpation of the MCPs, PIPs or DIPs. Herbedens nodes noted bilaterally Wrists Right Wrist: Full ROM to flexion and extension. No swelling or TTP Left Wrist: Full ROM to flexion and extension. No swelling or TTP Elbows Right Elbow: Full ROM. No swelling or TTP. No TTP of the medial epicondyle. No TTP of the lateral epicondyle Left Elbow: Full ROM. No swelling or TTP. No TTP of the medial epicondyle. No TTP of the lateral epicondyle Shoulders Right shoulder: No swelling noted. No TTP of the AC joint. No TTP of the subacromial bursa. No TTP of the posterior shoulder Left shoulder: No swelling noted. No TTP of the AC joint. TTP of the subacromial bursa. No TTP of the posterior shoulder Knees Right knee: Full ROM. No swelling noted. TTP of the knee joint line. No TTP of pes anserine bursa Left knee: Full ROM. No swelling noted. TTP of the knee joint line. No TTP of pes anserine bursa. Crepitations felt bilaterally Ankles Right ankle: Good ankle dorsiflexion and plantar flexion. No swelling. No TTP of the ankle joint Left ankle: Good ankle dorsiflexion and plantar flexion. No swelling. No TTP of the ankle joint Feet Right foot: Negative squeeze test Left foot: Negative squeeze test Tender points? No tenderness to palpation of the bilateral trapezius, supraspinatus, anterior costochondral junctions, bilateral suboccipital muscle insertions SKIN No rashes Vital Signs: Last Vital Signs Pulse 89 09/09/25 09:30 BP 142/90 H 09/09/25 09:30 Pulse Ox 98 09/09/25 09:30 Oxygen Delivery Method Room Air 09/09/25 09:30 BMI result Body Mass Index 50.7 Office Procedures AMB Joint Injection/Aspiration Joint Injection/Aspiration Details: Procedure was explained to the patient and informed consent was obtained. ? Risks associated with the procedure were discussed with the patient including but not limited to bleeding, infection, drug reactions and reactions to the topical anesthetic. Patient made aware of signs to look out for infectious complications. The area of interest was identified and confirmed with patient. ?This was subsequently cleaned with chlorhexidine x 2. ? The area was then anesthetized using ethyl chloride spray. 40 mg Kenalog with 1 cc 1% lidocaine was injected without issue. ?Minimal to no bleeding. ?Patient tolerated procedure. Primary Site: Left Shoulder (left subacromial bursa) Prep: site was prepped using aseptic technique and ethochloride spray was applied Injected: 40 mg of, Kenalog, with 1 mL of, 1% plain Lidocaine and in the subcromial space Procedure: The patient tolerated the procedure well Coding 55717 - Glenohumeral/Tronchanteric Bursa/Intraarticular Procedure code (CPT) selection complete Office Meds lidocaine (PF) 10 mg/mL (1 %) injection solution Performing Provider: Peg Clark MD Performing Location: [facility] [place] [facility] Administered by: Peg Clark MD on 09/09/25 10:13 Dose Route Admin Location Dispensed Lot Number Expiration Date [facility] Boiler Service Technician 1 mL Infiltration left shoulder 2 mL [id number] 03/27/27 96922-743-79 [employer] Total Dispensed Waste 2 mL 50 % Kenalog 40 mg/mL suspension for injection Performing Provider: Peg Clark MD Performing Location: [facility] [place] [facility] Administered by: Peg Clark MD on 09/09/25 10:13 Dose Route Admin Location Dispensed Lot Number Expiration Date [facility] [employer]iler Service Technician 40 mg intra-articular left shoulder 1 mL [id number] 04/26/27 [address]-4 [employer] Total Dispensed Waste 1 mL 0 % Results Reviewed Results Reviewed: Laboratory Tests 03/28/24 04/03/25 05/25/25 09:52 09:35 13:08 Sodium 139 Potassium 4.2 Chloride 102 Carbon Dioxide 31 H BUN 18 H Creatinine 0.88 AST 22 33 ALT 30 55 H C-Reactive Protein 3.43 H Laboratory Tests 05/25/25 13:08 Rheumatoid Factor < 13.0 Cycl Citrul Peptide IgG <16 HENRI Screen POSITIVE A HENRI Titer 1:320 H XR Bilateral Shoulder 04/2025 FINDINGS: Six views of the bilateral shoulders are submitted. Osseous mineralization is normal. There is no fracture or dislocation. There is moderate to severe osteoarthritis of the bilateral AC joints, with joint space narrowing and osteophyte formation. The glenohumeral joints are maintained. The soft tissues are unremarkable. \ IMPRESSION: Moderate to severe osteoarthritis of the bilateral AC joints. XR L Spine 04/2025 FINDINGS: Small marginal osteophyte formation and endplate sclerosis and lower thoracic and upper lumbar spine and to a lesser extent L4-5. No acute cortical disruption or malalignment. No lytic or blastic lesions. Vascular desiccation's, aorta. IMPRESSION: Mild multilevel thoracolumbar spondylosis. XR Bilateral Feet 04/2025 FINDINGS: Six views of the bilateral feet are submitted. Osseous mineralization is normal. There is no acute fracture or dislocation. There is internal fixation of the distal left fibula. The joint spaces are preserved. There are bilateral plantar calcaneal spurs. There are vascular calcifications. IMPRESSION: Bilateral plantar calcaneal spurs. Otherwise unremarkable examination of the bilateral feet. XR Bilateral Elbow 04/2025 FINDINGS: Six views of the bilateral elbows are submitted. Osseous mineralization is normal. There is no fracture or dislocation. The joint spaces are preserved. The soft tissues are unremarkable. There is no joint effusion. IMPRESSION: Unremarkable examination of the bilateral elbows. XR C Spine 04/2025 FINDINGS: Craniocervical junction is intact. Small marginal osteophyte formation C4-5. No acute cortical disruption or malalignment. No lytic or blastic lesions. Upper airways patent. IMPRESSION: Mild spondylosis C4-5. Assessment & Plan Assessment & Plan (1) Polyarticular osteoarthritis: Code(s): M15.9 - Polyosteoarthritis, unspecified Plan: #Polyarticular OA Patient is a 59-year-old male morbidly obese here today for evaluation of polyarthralgias. Exam, history and x-rays consistent with polyarticular osteoarthritis. Discuss this with the patient and . At this time no concern for autoimmune or connective tissue disease. No evidence of synovitis on examination Had a long discussion with patient about his weight. He did report an old injury to his left ankle with surgical intervention which limits his mobility and limits his ability for activity. Previously on a GLP 1 for this was denied by his insurance His main problem today was his left shoulder and so a steroid injection was given We will continue to follow him up every 6 months Plan - s/p left shoulder steroid injection to subacromial bursa - RTC 6 months (2) HENRI positive: Code(s): R76.8 - Other specified abnormal immunological findings in serum Plan: #Positive HENRI The presence of antinuclear antibodies (HENRI) is mainly associated with connective tissue diseases (CTD). However, their presence is found in healthy people especially in women and patients >65. In healthy individuals, the frequency of HENRI has been shown to be 31.7% of individuals at 1:40 serum dilution, 13.3% at 1:80, 5.0% at 1:160, and 3.3% at 1:320 (2). Some drugs and xenobiotics are also important for the development of HENRI (hydralazine, hydrochlorothiazide, minocycline, terbinafine, ciprofloxacin, furosemide, omeprazole). Moreover, the deficiency of vitamin D in the body of patients correlates with occurrence of these antibodies (1). At this time there is low suspicion for a connective tissue disease. 1. Donny?zhao Hicks, Marta Reid, Vikash Shah. Antinuclear antibodies in healthy people and non-rheumatic diseases - diagnostic and clinical implications. Reumatologia. 2018;56(4):243-248. doi: 10.5114/reum.2018.31110. Epub 2017Jun 27. PMID: 15339102; PMCID: [id number]. 2. Osman EM, Mariaa TE, Maico JS, Bo B, Sandra R, Inez MJ, Sukhdeep T, Nataly JA, Jadyn JR, Aimee RG, Saadia RN, Yaneli JS, Nata NF, Erwin RJ, Isamar Y, Serena A, Kalpesh MR, Alex KEY. Range of antinuclear antibodies in healthy individuals. Arthritis Rheum. 1996;40(9):1601-11. doi: 10.1002/art.4915143183. PMID: 8307571. Plan I spent 30 minutes reviewing the record and labs, taking a history, examining the patient, discussing the treatment plan, ordering diagnostic work up and documenting in the medical record Orders: Orders AMB Joint Injection/Aspiration Today M19.011 - Primary osteoarthritis, right shoulder, M19.012 - Primary osteoarthritis, left shoulder Coding Level of Care Code New Pt Level 3 (30903) Complex EM visit Add On G2211 Diagnoses Polyarticular osteoarthritis M15.9 HENRI positive R76.8 CPT Codes Coding - Joint 7: 30972 - Glenohumeral/Tronchanteric Bursa/Intraarticular ([id number])
[2025-09-09 09:30] VITALS: BP 142/90; PULSE 89; O2SAT 98; BMI 50.7
== END 2025-09-09 10:25 | disposition home or self-care (01) ==
PROVIDERS: PCP Internal Medicine; Visit Provider Student in an Organized Health Care Education/Training Program
DX: R76.89 Other specified abnormal immunological findings in serum (principal); M19.011 Primary osteoarthritis, right shoulder; M19.012 Primary osteoarthritis, left shoulder
CPT/HCPCS: 20610; 99203

== ENCOUNTER → 2025-09-09 08:48 | Outpatient (BNVA) | payer OTHER, SELFPAY | PROVIDERS: PCP Internal Medicine; Visit Provider Student in an Organized Health Care Education/Training Program | DX: M15.9 Polyosteoarthritis, unspecified (principal); M25.512 Pain in left shoulder; M25.50 Pain in unspecified joint; R76.89 Other specified abnormal immunological findings in serum | CPT/HCPCS: 20610; 99202; J2003; J3301 ==

== ENCOUNTER 2025-09-14 16:02 | Emergency (ER) | payer OTHER, SELFPAY ==
--- NOTE | ~2025-09-14 | XR_ITS ---
EXAMINATION: XR CHEST CLINICAL INFORMATION: CP COMPARISON: February 11, 2025 TECHNIQUE: 2 views of the chest were obtained. FINDINGS: No significant abnormality is noted involving the heart, lungs, mediastinum, bony thorax or soft tissues. Incidental note is made of an azygos lobe, a normal variant. XR/XR chest 2V IMPRESSION: No acute disease. Electronically signed by: Irineo Saba MD 09/14/2025 04:40 PM EST
--- NOTE | 2025-09-14 16:06 | ECG_ITS ---
Test Reason : JAW PAIN Blood Pressure : */* mmHG Vent. Rate : 97 BPM Atrial Rate : 97 BPM P-R Int : 148 ms QRS Dur : 82 ms QT Int : 356 ms P-R-T Axes : 18 -12 -17 degrees QTcB Int : 452 ms Normal sinus rhythm Inferior infarct , age undetermined Abnormal ECG When compared with ECG of 17-Apr-2017 10:21, Inferior infarct is now Present T wave inversion now evident in Inferior leads Referred By: Mallory Vega Electronically Signed By: LORETA RAI
[2025-09-14 16:18] VITALS: BP 163/76; PULSE 93; RESP 18; TEMP 36.6; O2SAT 98; BMI 50.6
--- NOTE | 2025-09-14 16:18 | ED_ITS ---
HPI - Chest Pain General Chief Complaint: General Medical Stated Complaint: chest pain/left shoulder pain/back pain Time Seen by Provider: 09/14/25 19:29 Source: patient and family ( ) Mode of arrival: ambulatory Limitations: no limitations History of Present Illness ED Provider: Dr. Remigio Green HPI narrative: 59-year-old male with a history of hypertension, JOAQUIN, GERD, osteoarthritis who presents emergency department for evaluation of left-sided shoulder, neck and chest pain. The patient states that he has been having pain in his left shoulder for weeks. Five days prior he got a cortisone injection to his left shoulder. He states that the pain in his left shoulder is now worse. He describes the pain is a constant, sharp pain which is worse with movement. He states the pain is now spreading up his neck into his chest. He states he is having difficulty moving his neck secondary to his pain. Patient denied fever, chills, cough, shortness of breath or dyspnea on exertion. Related Data Previous Rx's ?Medication ?Instructions ?Recorded CPAP (CPAP Machine/Device) #1 ea 01/21/24 hydrochlorothiazide 25 mg tablet 25 mg PO DAILY 90 day s #90 tabs 05/07/25 amlodipine 10 mg tablet 10 mg PO DAILY #90 tabs 05/29 01/19 ibuprofen 800 mg tablet 800 mg PO Q8H PRN pain 30 da ys #90 06/19/25 tabs omeprazole 20 mg capsule,delayed 20 mg PO DAILY 90 day s #90 caps 06/19/25 release metformin 500 mg tablet 500 mg PO DAILY 90 days #90 tabs 07/08/25 celecoxib 100 mg capsule (Celebrex) 100 mg PO BID PRN pain 30 days #60 08/05/25 caps losartan 100 mg tablet 100 mg PO DAILY 90 days #90 tabs 08/05/25 nystatin 100,000 unit/gram topical 1 appl topical JESSICA Y 2 weeks #15 08/05/25 cream grams tirzepatide (weight loss) 2.5 2.5 mg (0.5 mL) subcut Q WEEK 4 08/05/25 mg/0.5 mL subcutaneous pen weeks #2 mL injector (Zepbound) cyclobenzaprine 10 mg tablet 10 mg PO TID PRN muscle p ain or 09/14/25 spasm #20 tabs morphine 15 mg immediate release 15 mg PO Q6H PRN pain #14 tabs 09/14/25 tablet Allergies Allergy/AdvReac Type Severity Reaction Status Date / Time oxycodone AdvReac Severe sweating, Verified 09/14/25 16:21 dizziness Review of Systems 2 Review of Systems: Yes all other systems are reviewed and are negative [facility] Past Medical History Source: obtained from family Medical History Morbid obesity with BMI of 45.0-49.9, adult Morbid obesity with BMI of 40.0-44.9, adult Morbid obesity due to excess calories Impaired fasting glucose Benign essential hypertension Surgical History S/P excision of lipoma (~2001) Family History Family History Father Diabetes Mother Diabetes Pancreatic cancer Family/Other Substance use disorder Social History Social History Housing: Apartment Alcohol intake: current Alcohol intake frequency: holidays/special occasions only Alcohol type: beer Patient Tobacco Use Status: Never used Tobacco Smoked in Last 30 Days: No e-Cigarette/Vaping Use: Never Used Second Hand Smoke Exposure: No Use of substances other than those prescribed or required for medical reasons: No Advance Directives: No Advance Directives Information Provided: No Do you have a plan to hurt others: No Plan service: No 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al status: unemployed 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 Cognitive needs: No Hearing needs: No Vision needs: No Physical Exam 2 Vital Signs: Vital Signs: Last Vital Signs Temp 98 F 09/14/25 18:00 Pulse 72 09/14/25 18:00 Resp 18 09/14/25 18:00 BP 158/70 H 09/14/25 18:00 Pulse Ox 97 09/14/25 18:00 O2 Del Method Room Air 09/14/25 18:00 BMI result Body Mass Index 50.6 Vital signs revealed an elevated blood pressure of 158/70 otherwise unremarkable Exam: General: Awake, alert in no distress, weight 160.1 kg, elevated BMI 50.6 kilograms/meter squared Head: Normocephalic, atraumatic EENT: PERRL, sclera and conjunctiva are normal, mouth with no erythema or exudates Neck: no tenderness palpation of the cervical vertebrae, there is spasm and significant tenderness palpation of the left trapezius muscle increased neck pain with left-sided rotation of his head. Lung: breath sounds symmetric, no wheezing, no rales and no rhonchi Chest: symmetric movement, nontender Heart: regular rate and rhythm, normal S1, S2 no murmurs or rubs Abdomen: soft, non-tender, nondistended, normal bowel sounds Back: no vertebral tenderness, no CVAT Extremities: there is no erythema or increased warmth over the left shoulder, patient has no significant tenderness palpation over the deltoid muscle, patient has normal passive range of motion, patient has increased pain with internal and external rotation of the shoulder joint Neuro: Awake, alert, oriented, normal speech, cranial nerves 2-12 intact, moves all extremities symmetrically Psych: Pleasant, cooperative Course Course Course Narrative: This is an RME: Additional HPI, ROS, PE not included below will be deferred to primary provider. RME assessment and note performed by: Mallory Vega PA-C This is a 89-[id number]-[id number]-irish speaking male, with a hx of HTN, DM, GERD, and OA, who presents to the ER with complaints of left sided chest pain that worsened 2 days ago. Reports that the pain started in his left upper back and radiates into his left side of his chest. Hx of [place] in 2005. Plan: Labs, EKG, CXR Medical Decision Making Medical Decision Making MDM Narrative: 59-year-old male with a history of hypertension, JOAQUIN, GERD, osteoarthritis who presents emergency department for evaluation of left-sided shoulder, neck and chest pain. The patient states that he has been having pain in his left shoulder for weeks. Five days prior he got a cortisone injection to his left shoulder. He states that the pain in his left shoulder is now worse. He describes the pain is a constant, sharp pain which is worse with movement. He states the pain is now spreading up his neck into his chest. He states he is having difficulty moving his neck secondary to his pain. Patient denied fever, chills, cough, shortness of breath or dyspnea on exertion. Vital signs did reveal an elevated blood pressure otherwise unremarkable. Exam did reveal pain with active rotation of the left shoulder, tenderness and spasm of the left trapezius muscle with an increased neck pain with rotating the head to the left. Differential diagnosis: Includes but is not limited to myocardial infarction, myocardial ischemia, chest wall pain, costochondritis, left shoulder strain/sprain, left shoulder cellulitis, neck sprain, neck strain, muscle spasm, anemia, electrolyte abnormalities Course: 21:00 My independent interpretation patient's laboratory evaluation is as follows: WBC elevated 12,900. BUN elevated 21 with a normal creatinine of 0.97 and a GFR greater than 60. Glucose elevated 146. AST and ALT elevated 43 and 76. Troponin was below detectable limits. patient's 12 EKG did not reveal any ST segment elevation or depression. Given the patient's physical exam findings I suspect that the patient's shoulder, neck and chest pain are musculoskeletal and he does have significant that has spasm of his trapezius muscle. I did discuss this with the patient and with the patient's . Patient was given morphine 15 mg orally and Flexeril 10 mg orally. patient was advised to take Tylenol ibuprofen for pain and for pain not relieved by these medications he was prescribed morphine 15 mg every 6 hours as needed. He was also given a prescription for Flexeril 10 mg q.6 hours as needed for pain and spasm. Differential Diagnosis Differential Diagnoses: The differential diagnosis associated with the presentation includes ( See above) Admission/Observation Consideration of admission/observation: Escalation of care including admission/observation considered ( yes) Lab Data MDM Lab Attestation statement: I reviewed the patient's lab results. 09/14/25 16:56 09/14/25 16:56 Labs: Lab Results 09/14/25 Range/Units 16:56 WBC 12.9 H (4.8-10.8) X10*3/uL RBC 5.06 (4.60-5.80) X10*6/uL Hgb 14.2 (14.0-18.0) g/dl Hct 43.1 (42.0-52.0) % MCV 85.2 (80.0-98.0) fL MCH 28.1 (27.0-33.0) pg MCHC 32.9 (31.0-36.0) g/dl RDW 13.5 (11.0-16.0) % Plt Count 348 (160-400) X10*3/uL MPV 9.5 (9.4-12.4) fL Immature Gran % (Auto) 0.2 (0.0-0.4) % Neut % (Auto) 69.2 (45-73) % Lymph % (Auto) 20.2 (20-40) % [place] % (Auto) 7.1 (2-11) % Eos % (Auto) 2.4 (0-4) % Baso % (Auto) 0.9 (0-2) % Lymph # (Auto) 2.6 (1.2-4.9) X10*3/uL [place] # (Auto) 0.9 (0.1-1.2) X10*3/uL Eos # (Auto) 0.3 (0.0-0.4) X10*3/uL Baso # (Auto) 0.1 (0.0-0.2) X10*3/uL Abs Immat Gran (auto) 0.03 (0.00-0.03) X10*3/uL Absolute Neuts (auto) 8.9 H (2.0-8.3) x10*3/uL Absolute Nucleated RBC 0.000 (0.0-0.012) X10*3/uL Nucleated RBC % (auto) 0.0 (0.0-0.2) /100WBC Sodium 138 (135-145) mmol/L Potassium 4.0 (3.3-5.1) mmol/L Chloride 102 (96-108) mmol/L Carbon Dioxide 27 (22-29) mmol/L Anion Gap 13 (12-20) BUN 21 H (9-16) mg/dL Creatinine 0.97 (0.5-1.4) mg/dL Estim Creat Clear Calc 123.5 Estimated GFR > 60 Random Glucose 146 H (60-115) mg/dL Calcium 10.3 H D (8.4-10.2) mg/dL Magnesium 2.0 (1.6-2.6) mg/dL Total Bilirubin 0.2 (0.0-1.0) mg/dL Direct Bilirubin < 0.2 (0.0-0.5) mg/dL AST 43 H (5-37) U/L ALT 76 H (0-40) U/L Alkaline Phosphatase 58 (39-117) U/L Troponin I High Sens < 2.7 (<3.5-35.0) ng/L Total Protein 8.2 H (6.5-8.0) g/dL Albumin 4.4 (3.5-5.0) g/dL Independent Interpretation I performed an independent interpretation of an: EKG Interpretation: my independent interpretation patient's 12 lead EKG done on 09/14/2025 at 16:13 hours is as follows: Normal sinus rhythm with a rate of 97, normal OK interval, QRS duration QTC interval, there is artifact in the baseline which makes the EKG difficult to interpret, no ST segment elevation, no ST segment depression, no significant T-wave abnormalities, no PACs, no PVCs. Compared to an EKG dated 04/17/2017 there were no significant changes. My independent interpretation patient's two view chest x-ray is as follows: No acute disease Radiology Impression Radiologist Impression: XR chest 2V IMPRESSION: No acute disease. Electronically signed by: Irineo Saba MD 09/14/2025 04:40 PM Independent Historian Clinical information obtained from an independent historian. History obtained from or confirmed by: Spouse Prescription Management I considered prescription management with: Pain Medication ( prescription for morphine 15 mg pills) and Other ( prescription for anti spasmodic Flexeril 10 mg pills) Chronic Conditions Patient?s care impacted by: Hypertension Discharge Plan Discharge Clinical Impression: Acute pain of left shoulder, Spasm of left trapezius muscle Patient Disposition: Home, Self-Care Additional Instructions: Your blood work was unremarkable. Your EKG was normal. Your chest x-ray was normal as well. On your exam you did have pain with movement of your left shoulder. You also have pain with squeezing your left neck muscle (the trapezius muscle) and this muscle isn't spasm. Your symptoms are more consistent with pain after a steroid injection to your shoulder and inflammation and spasm of your neck muscles. Take your ibuprofen 800 mg pills, 1 pills every 6 hours as needed for pain. Take Tylenol (acetaminophen) 500 mg pills, 2 pills every 6 hours as needed for pain. For pain not relieved by ibuprofen or Tylenol take morphine 15 mg pills, 1 pill every 6 hours as needed for pain. This medication will make you sleepy, do not drive or work while taking this medication. Morphine is a narcotic medication and can be addicting. If you are concerned about addiction you can ask the pharmacist for less pills or do not get this prescription filled. Take Flexeril (cyclobenzaprine) 10 mg pills, 1 pill every 6-8 hours as needed for pain or spasm. This medication will make you sleepy. Do not drive or work while taking this medication. Apply heating pad on low for 15 minutes 4 to 6 times a day to your left neck/trapezius muscle to help relieve the pain and spasm. Follow-up with your doctor in 2 days. Please return to the emergency department if your symptoms get worse or if you develop any symptoms that are concerning to you. Prescriptions: New cyclobenzaprine 10 mg tablet 10 mg PO TID PRN (Reason: muscle pain or spasm) Qty: 20 0RF morphine 15 mg tablet 15 mg PO Q6H PRN (Reason: pain) Qty: 14 0RF Rx Instructions: Partial Fill upon patient request. No Action (DME) CPAP Machine/Device Device See Rx Instructions .Route Qty: 1 0RF Rx Instructions: autoPAP 6-20 cm H2O hydrochlorothiazide 25 mg tablet 25 mg PO DAILY 90 Days Qty: 90 1RF ibuprofen 800 mg tablet 800 mg PO Q8H PRN (Reason: pain) 30 Days Qty: 90 0RF omeprazole 20 mg capsule,delayed release(DR/EC) 20 mg PO DAILY 90 Days Qty: 90 0RF amlodipine 10 mg tablet 10 mg PO DAILY Qty: 90 1RF metformin 500 mg tablet 500 mg PO DAILY 90 Days Qty: 90 0RF losartan 100 mg tablet 100 mg PO DAILY 90 Days Qty: 90 1RF celecoxib [Celebrex] 100 mg capsule 100 mg PO BID PRN (Reason: pain) 30 Days Qty: 60 0RF Zepbound 2.5 mg/0.5 mL pen injector 2.5 mg subcut QWEEK 28 Days Qty: 2 0RF Rx Instructions: for 4 weeks nystatin 100,000 unit/gram cream 1 appl topical DAILY 14 Days Qty: 15 0RF Print Language: Faroese
[2025-09-14 16:59] LABS: MANUAL DIFF FLAG NO
[2025-09-14 17:01] LABS: Hematocrit 43.1 % (42.0-52.0); Hemoglobin 14.2 g/dl (14.0-18.0); Imm Gran Abs Auto 0.03 X10*3/uL (0.00-0.03); Imm Gran Pct Auto 0.2 % (0.0-0.4); Lymphocytes Absolute Auto 2.6 X10*3/uL (1.2-4.9); Mean Corpuscular HGB Conc 32.9 g/dl (31.0-36.0); Mean Corpuscular Hemoglobin 28.1 pg (27.0-33.0); Mean Corpuscular Volume 85.2 fL (80.0-98.0); NRBC Abs Auto 0.000 X10*3/uL (0.0-0.012); NRBC Pct Auto 0.0 /100WBC (0.0-0.2); Platelet Count 348 X10*3/uL (160-400); Red Blood Count 5.06 X10*6/uL (4.60-5.80); White Blood Count 12.9 X10*3/uL (4.8-10.8)
[2025-09-14 17:22] LABS: Alanine Aminotransferase 76 U/L (0-40); Albumin Level 4.4 g/dL (3.5-5.0); Alkaline Phosphatase 58 U/L (39-117); Anion Gap 13 (12-20); Aspartate Amino Transferase 43 U/L (5-37); Blood Urea Nitrogen 21 mg/dL (9-16); Calcium 10.3 mg/dL (8.4-10.2); Carbon Dioxide 27 mmol/L (22-29); Chloride 102 mmol/L (96-108); Creatinine Clr Calc Pharmacy 123.5; Estimated Glomerular Filt Rate > 60; Magnesium 2.0 mg/dL (1.6-2.6); Potassium 4.0 mmol/L (3.3-5.1); Sodium 138 mmol/L (135-145); Total Protein 8.2 g/dL (6.5-8.0)
[2025-09-14 17:35] LABS: Troponin-I High Sensitivity < 2.7 ng/L (<3.5-35.0)
[2025-09-14 18:00] VITALS: BP 158/70; PULSE 72; RESP 18; TEMP 36.6; O2SAT 97
[2025-09-14] MEDS: Morphine Sulfate Immed Release 15 MG TABLET PO (20:03)
[2025-09-14 20:04] VITALS: BP 158/70; PULSE 72; RESP 18; TEMP 36.6; O2SAT 97
--- OUTSIDE RECORDS SUMMARY | 2025-09-15 13:42 | XMS_ITS | Clinical Summary ---
Author Organization [facility] ity Address [address] [place] [id number] Care Team Providers Care Sports Development Officer Name Role Phone Unavailable Primary Care Provider [...]
== END 2025-09-14 20:05 | disposition home or self-care (01) ==
PROVIDERS: Physician Assistant Medical; Emergency Provider Emergency Medicine Emergency Medical Services; PCP Internal Medicine
DX: M25.512 Pain in left shoulder (principal); M62.838 Other muscle spasm; R07.9 Chest pain, unspecified; I10 Essential (primary) hypertension
CPT/HCPCS: 36415; 71046; 80048; 80076; 83735; 84484; 85025; 93005; 99283; 99285

== ENCOUNTER → 2025-09-14 16:06 | Outpatient (BNV) | payer OTHER, SELFPAY | PROVIDERS: Emergency Provider Emergency Medicine Emergency Medical Services; PCP Internal Medicine; Visit Provider Internal Medicine | DX: R94.31 Abnormal electrocardiogram [ECG] [EKG] (principal); R68.84 Jaw pain | CPT/HCPCS: 93010 ==

== ENCOUNTER → 2025-09-14 16:21 | Outpatient (BNV) | payer OTHER, SELFPAY | PROVIDERS: PCP Internal Medicine; Visit Provider Radiology Diagnostic Radiology | DX: R07.9 Chest pain, unspecified (principal) | CPT/HCPCS: 71046 ==